=== PATIENT | male | born 1940 | race Caucasian/White ===

== ENCOUNTER 2017-09-03 11:09 | Inpatient (IN) ==
[2017-09-03] MEDS ORDERED: Levofloxacin 750 MG/150 ML 750 MG/150 ML BAG IVPB ONE (11:51)
[2017-09-03] MEDS ORDERED: Piperacillin/Tazobactam 3.375 GM in D5% in Water (Mini-Bag+) 100 ML IVPB ONE (11:51)
--- NOTE | 2017-09-03 11:51 | Emergency Department Note ---
Disposition Clinical Impression: Diabetic foot ulcer Qualifiers: Diabetic foot ulcer location: heel Diabetes mellitus type: type 2 Laterality: right Non-pressure ulcer stage: unspecified non-pressure ulcer stage Qualified Code(s): E11.621 - Type 2 diabetes mellitus with foot ulcer Disposition: Admitted As Inpatient Condition: Undetermined Time of Disposition: 12:46 Wound/Laceration HPI - General Chief Complaint: ED Wound/Laceration Stated Complaint: Wound on R foot Time Seen by Provider: 09/03/17 11:31 Source: patient Mode of arrival: wheelchair Limitations: no limitations Nursing Notes Reviewed: Yes Vital Signs Reviewed: Yes - History of Present Illness HPI Narrative: 77-year-old male with history of diabetic foot ulcer on the right heel [facility] complaining of worsening symptoms Kleen pain, erythema, discharge. The patient states this all started roughly 2 months ago. The patient has seen Dr. Becerril in podiatry. He recently had an x-ray as well as culture of the wound which revealed pseudomonas. The patient has been outpatient prescribed levofloxacin as well as Augmentin. Pain has continued to worsen as well as worsening erythema. Patient denies any desire for pain medication at this time. Extremity Location: Right: foot Mechanism: accidental Associated symptoms: Reports: pain, loss of feeling/numbness Pain Severity: moderate Pain Scale: 4 Treatments prior to arrival: other (antibiotics) - Related Data Home Medications Medication Instructions Recorded Confirmed Aspirin [Adult Low Dose Aspirin EC] 81 mg PO QAM 12/17/15 09/03/17 Atorvastatin Calcium [Lipitor] 80 mg PO HS 12/17/15 09/03/17 Calcium Carbonate [Calcium] 1 tab PO QAM 12/17/15 09/03/17 Clopidogrel [Plavix] 75 mg PO HS 12/17/15 09/03/17 Cyanocobalamin (Vitamin B-12) 1,000 mcg PO QAM 12/17/15 09/03/17 [Vitamin B12] Isosorbide MONOnitrate (24 HR) 30 mg PO HS 12/17/15 09/03/17 [Imdur] Lisinopril [Zestril] 10 mg PO HS 12/17/15 09/03/17 Metformin HCl [Glucophage] 850 mg PO BID 12/17/15 09/03/17 Nitroglycerin [Nitrostat] 0.4 mg SL Q5M PRN 12/17/15 09/03/17 Omeprazole [PriLOSEC] 40 mg PO QAM 12/17/15 09/03/17 Cholecalciferol (Vitamin D3) 1,000 unit PO QAM 01/01/16 09/03/17 [Vitamin D3] traMADol [Ultram] 50 mg PO Q6HR PRN 01/01/16 09/03/17 Metoprolol XL (24 HR) Succ [Toprol 50 mg PO DAILY 09/03/17 09/03/17 XL] levoFLOXacin [Levaquin] 500 mg PO DAILY 09/03/17 09/03/17 Allergies Allergy/AdvReac Type Severity Reaction Status Date / Time hydrocodone [From [place]] AdvReac Vomiting Verified 09/03/17 12:26 Oxycodone AdvReac Vomiting Verified 09/03/17 12:26 Constitutional: Denies: fever, chills, weakness, weight change Cardiovascular: Denies: chest pain, palpitations, dyspnea on exertion, edema, syncope Respiratory: Denies: cough, dyspnea, wheezes, hemoptysis, stridor Gastrointestinal: Denies: abdominal pain, nausea, vomiting Musculoskeletal: Denies: back pain, neck pain, arthralgia, myalgia Integumentary: Reports: lesions (Diabetic foot ulcer). Denies: rash, abrasion Past Medical History - Past Medical History Attestation: Yes The following information was validated with the patient. Source: patient Medical history: Reports: atrial fibrillation, diabetes, GERD, hyperlipidemia, hypertension, other Surgical history: Reports: cataract, coronary bypass (CABG), herniorrhaphy Psychiatric history: Reports: no psych history - Social History Smoking Status: Former smoker Smokeless Tobacco Status: Yes Alcohol use: Reports: occasionally Drug use: Reports: none Physical Exam - General Limitations: no limitations General appearance: alert, in no apparent distress - Head Head exam: atraumatic, normocephalic, normal inspection - Eye Eye exam: Present: normal appearance, PERRL, EOMI - ENT ENT exam: normal exam, normal oropharynx, mucous membranes moist - Neck Neck exam: Present: normal inspection, full ROM, trachea midline - Chest Chest inspection: Present: normal inspection, symmetric chest wall rise - Cardiovascular Cardiovascular exam: Present: regular rate - Extremities Exam Extremities exam: Present: full ROM, tenderness, other (A barraza has an area of erythematous and fluctuance on the right heel with purulent discharge. Tenderness to palpation as well as heat felt on palpation.) Course - Consultations Consultation #1: We spoke with Dr. Becerril who agreed that the patient should receive IV antibiotic and admit the patient. He will see the patient on an inpatient setting. Time: 11:55 Vital Signs Temperature 98 F 09/03/17 11:26 Pulse Rate 82 09/03/17 11:26 Respiratory Rate 20 09/03/17 11:26 Blood Pressure 190/100 09/03/17 11:26 O2 Sat by Pulse Oximetry 96 09/03/17 11:26 Temperature 98 F 09/03/17 11:26 Pulse Rate 82 09/03/17 11:26 Respiratory Rate 20 09/03/17 11:26 Blood Pressure 190/100 09/03/17 11:26 O2 Sat by Pulse Oximetry 96 09/03/17 11:26 Oxygen Delivery Oxygen Delivery Room Air Wound/Laceration - MDM Narrative Medical decision making narrative: Given the patient's pseudomonas on the culture, and failed outpatient therapy with worsening symptoms, we will admit the patient to the hospitalist as well as begin IV antibiotics at this time. Per recommendation from Dr. Becerril in podiatry, we began the patient on IV Levaquin as well as IV Zosyn. The patient denies any desire for pain medication at this time. We will obtain basic labs and admit the patient to the hospitalist, accepted by Dr. Strong. - Medical Records Medical records reviewed: Yes I reviewed the patient's medical records. - Lab Data Lab results reviewed: Yes I reviewed the patient's lab results. Result diagrams: 09/03/17 12:11 09/03/17 12:11 Lab Results 09/03/17 09/03/17 09/03/17 Range/Units 12:11 12:11 12:11 WBC 12.1 H (4.3-11.1) K/mcL RBC 5.36 (4.19-5.50) M/mcL Hgb 14.9 (12.9-16.9) g/dL Hct 46.2 (37.5-50.1) % MCV 86.2 (83.0-100.0) fL MCH 27.8 L (28.0-33.3) pg MCHC 32.3 (31.6-35.5) g/dL RDW 13.8 (11.5-14.5) % Plt Count 232 (140-400) K/mcL MPV 11.0 (9.4-12.4) fL Immature Gran % 0.4 (0-4) % Seg Neutrophils % 66.0 % Lymphocytes % 21.6 % Monocytes % 8.0 % Eosinophils % 3.6 % Basophils % 0.4 % Neutrophils # 8.0 (1.6-8.9) K/mcL Lymphocytes # 2.6 (0.6-4.6) K/mcL Monocytes # 1.0 (0.0-1.3) K/mcL Eosinophils # 0.4 (0.0-0.6) K/mcL Basophils # 0.1 (0.0-0.2) K/mcL ESR 68 H (0-10) mm/hr Sodium 138 (136-145) mEq/L Potassium 5.1 H (3.5-4.5) mEq/L Chloride 99 (98-109) mEq/L Carbon Dioxide 28 (19-29) mEq/L BUN 19 (8-26) mg/dL Creatinine 1.17 (0.72-1.25) mg/dL Est GFR ( Amer) > 60 (> 60) Est GFR (Non-Af Amer) > 60 (> 60) BUN/Creatinine Ratio 16 (6-26) Glucose 84 (70-99) mg/dL Calculated Osmolality 287 (280-300) Calcium 10.8 (8.6-10.8) mg/dL C-Reactive Protein 6 H (Less than 5) mg/L - EKG Data EKG attestation: Yes I reviewed and interpreted this EKG. EKG results narrative: Heart rate 76 bpm. [place] interval 184 ms. QTc 45 ms. Left axis deviation. Normal sinus rhythm. No ST elevation or ST depression noted. Inverted T waves noted in numerous leads that are identical to EKG from 03/14/2016. No acute changes noted. Attestation Statement - Attestation Attestation: I, Chiki Berger DO, examined this patient [id number] and my medical decision-making was reviewed with Dr. Ajit Morales, Resident Physician. I agree with the documented findings, disposition and treatment plan as described except to the extent set forth below. Please see my progress notes for details. Patient seen and examined on arrival. Patient has known diabetic foot ulcer of the right vertebral. Is seen by podiatry. Failing outpatient treatment and antibiotics at this time. No imaging requested this time our labs. Will be admitted for IV antibiotics and treatment course. Foot otherwise appears to be normal. Pulses are intact skin is warm to the touch. Diabetic area over the heel appears to have some blurriness to this time concerning for necrotic abscesses or tissue breakdown. IV antibiotics started CBC chemistry as well as imaging to be result of her admission process. Consultation placed. See detailed documentation of the physical exam, medical intervention, medical decision making, disposition and consultation in the resident physician's note
[2017-09-03 12:19] LABS: Basophils # 0.1 K/mcL (0.0-0.2); Basophils % 0.4 %; Eosinophils # 0.4 K/mcL (0.0-0.6); Eosinophils % 3.6 %; Hematocrit 46.2 % (37.5-50.1); Hemoglobin 14.9 g/dL (12.9-16.9); Immature Granulocytes % 0.4 % (0-4); Lymphocytes # 2.6 K/mcL (0.6-4.6); Lymphocytes % 21.6 %; Mean Corpuscular HGB Conc 32.3 g/dL (31.6-35.5); Mean Corpuscular Hemoglobin 27.8 pg (28.0-33.3); Mean Corpuscular Volume 86.2 fL (83.0-100.0); Platelet Count 232 K/mcL (140-400); Red Blood Count 5.36 M/mcL (4.19-5.50); Red Cell Distribution Width 13.8 % (11.5-14.5)
[2017-09-03 12:33] LABS: BUN/Creatinine Ratio 16 (6-26); Blood Urea Nitrogen 19 mg/dL (8-26); C-Reactive Protein 6 mg/L (Less than 5); Calcium 10.8 mg/dL (8.6-10.8); Carbon Dioxide 28 mEq/L (19-29); Chloride 99 mEq/L (98-109); Glucose 84 mg/dL (70-99); Osmolality,Calculated 287 (280-300); Sodium 138 mEq/L (136-145); eGFR For African Americans > 60 (> 60); eGFR For Non-African Americans > 60 (> 60)
[2017-09-03 12:34] LABS: Potassium 5.1 mEq/L (3.5-4.5)
--- NOTE | 2017-09-03 13:11 | Event Note ---
Date of Encounter: 09/03/17 Time of Encounter: 13:09 I independently obtained history and examined this patient and my medical decision-making was reviewed with the nurse practitioner. I agree with the documented findings, disposition and treatment plan as described. My findings are summarized below: Patient presents with worsening right heel swelling, pain and purulent discharge in spite of several rounds of oral antibiotics, last one was with Levaquin and Augmentin started 4 days ago and wound care. On exam he is awake alert oriented. No distress. Heart is regular with no murmurs. Lungs are clear. Right heel soft tissue swelling and open wound surrounded by erythematous skin draining a very small amount of white purulent material. Assessment: Nonhealing right heel diabetic foot ulcer with infection caused by Pseudomonas, failed outpatient treatment. Plan: We will admit the patient to the hospital. Start IV Zosyn. Start IV Levaquin. We will send a wound culture. Consult podiatry. Kit Strong MD
[2017-09-03] MEDS ORDERED: Naloxone 0.4 MG/ML INJ IVP PRN (13:16)
[2017-09-03] MEDS ORDERED: Ipratropium/Albuterol Neb 3 ML IH PRN (13:23)
[2017-09-03] MEDS ORDERED: Nitroglycerin 0.4 MG TAB.SUBL SL PRN (13:28)
[2017-09-03] MEDS ORDERED: Dextrose Gel 15 GM PO PRN ×2 (13:30)
[2017-09-03] MEDS ORDERED: D5% in Water 1,000 ML IVC PRN (13:30)
[2017-09-03] MEDS ORDERED: *HR* Dextrose 50 % in Water (Syg) 50 ML SYRINGE IVP PRN (13:30)
--- NOTE | 2017-09-03 13:36 | Internal Med History&Physical ---
<DewayneAjit Ann - Last Filed: 09/03/17 15:18> Date of Encounter: 09/03/17 Time of Encounter: 12:30 Assessment and Plan (1) Diabetic foot ulcer Current visit: Yes Status: Acute Foot ulcer present for 2 months. Failed OP therapy w/PO levaquin and Augmentin four days ago. Pt. followed by Dr. Becerril. Previous wound culture positive for Pseudomonas with sensitivities to Levaquin and Zosyn. Podiatry consult ordered with daily wound care. IVP the Levaquin 750 mg daily and Zosyn 3.375 gm every 8 ordered for infection coverage. Patient does not currently meet sepsis criteria. Monitor patient for signs of increasing infection, cardiac, and/or respiratory distress. Pt. high risk for further morbidity/sepsis d/t current uncontrolled infection. Inpatient. Qualifiers: Diabetic foot ulcer location: heel Diabetes mellitus type: type 2 Laterality: right Non-pressure ulcer stage: unspecified non-pressure ulcer stage Qualified Code(s): E11.621 - Type 2 diabetes mellitus with foot ulcer; L97.419 - Non-pressure chronic ulcer of right heel and midfoot with unspecified severity; L97.419 - Non-pressure chronic ulcer of right heel and midfoot with unspecified severity; L97.419 - Non-pressure chronic ulcer of right heel and midfoot with unspecified severity; L97.419 - Non-pressure chronic ulcer of right heel and midfoot with unspecified severity (2) Leukocytosis Current visit: Yes Status: Acute Acute leukocytosis of 12.1 most likely due to current infected foot ulcer of rt. heel. F/u labs ordered to monitor WBC. IVPB levaquin and Zosyn for infection coverage. Qualifiers: Leukocytosis type: unspecified Qualified Code(s): D72.829 - Elevated white blood cell count, unspecified (3) Hyperkalemia Current visit: Yes Status: Acute Acute hyperkalemia with potassium of 5.1. Pt. receiving IV NS which should resolve. Monitor f/u labs for potassium levels. (4) Atrial fibrillation Current visit: Yes Status: Chronic Hx of atrial fibrillation. Stable. Patient's HR currently in rhythm. EKG shows sinus rhythm with possible atrial enlargement. Qualifiers: Atrial fibrillation type: paroxysmal Qualified Code(s): I48.0 - Paroxysmal atrial fibrillation (5) GERD (gastroesophageal reflux disease) Current visit: Yes Status: Chronic Hx of chronic GERD. IVP Zofran Q6 PRN. IVP Protonix 40 mg BID. Qualifiers: Esophagitis presence: esophagitis presence not specified Qualified Code(s) : K21.9 - Gastro-esophageal reflux disease without esophagitis (6) CHF (congestive heart failure) Current visit: Yes Status: Chronic Hx of chronic CHF. Stable. Patient currently has no pedal edema or SOB on exam. Qualifiers: Congestive heart failure type: unspecified congestive heart failure type Congestive heart failure chronicity: unspecified congestive heart failure chronicity Qualified Code(s): I50.9 - Heart failure, unspecified (7) CAD (coronary artery disease) Current visit: Yes Status: Chronic Hx of chronic CAD. Patient placed on continuous cardiac telemetry due to history of atrial fibrillation. Will continue patient's Imdur, lisinopril, Plavix, Lipitor, and aspirin therapy. Qualifiers: Coronary Disease-Associated Artery/Lesion type: unspecified vessel or lesion type [place] vs. transplanted heart: rin[place] heart Associated angina: angina presence unspecified Qualified Code(s): I25.10 - Atherosclerotic heart disease of [place] coronary artery without angina pectoris (8) DM II (diabetes mellitus, type II), controlled Current visit: Yes Status: Chronic Hx of chronic diabetes controlled with oral anti-hyperglycemics. Patient currently has unresolved foot ulcer to right foot. Will hold patient's oral medication and administer low-dose correction insulin sliding scale with hypoglycemic protocol. A1c ordered in a.m. labs. Diabetic education consult placed. Qualifiers: Diabetes mellitus complication status: with skin complications Diabetes mellitus complication detail: with foot ulcer Diabetes mellitus group home insulin use: without laborer marine terminal use Qualified Code(s): E11.621 - Type 2 diabetes mellitus with foot ulcer; L97.509 - Non-pressure chronic ulcer of other part of unspecified foot with unspecified severity; L97.509 - Non- pressure chronic ulcer of other part of unspecified foot with unspecified severity; L97.509 - Non-pressure chronic ulcer of other part of unspecified foot with unspecified severity; L97.509 - Non-pressure chronic ulcer of other part of unspecified foot with unspecified severity (9) HTN (hypertension) Current visit: Yes Status: Chronic Hx of chronic HTN. Monitor VS and continue Imdur and lisinopril. Qualifiers: Hypertension type: essential hypertension Qualified Code(s): I10 - Essential (primary) hypertension (10) HLD (hyperlipidemia) Current visit: Yes Status: Chronic Hx of chronic HLD. Lipid panel ordered in a.m. labs. Continue Lipitor. Qualifiers: Hyperlipidemia type: pure hypercholesterolemia Qualified Code(s): E78.00 - Pure hypercholesterolemia, unspecified; E78.0 - Pure hypercholesterolemia (11) DVT prophylaxis Current visit: Yes Status: Acute Heparin 5,000 units SQ Q8 for DVT prophylaxis. Internal Medicine - H&P: HPI Chief complaint: Painful wound on right heel Admitted From: Emergency Dept Plans for Post Hospital Care: Home History of present illness: Mr. Connolly is a 77 year old male with medical history of atrial fibrillation, diabetes controlled with oral anti-hyperglycemics, GERD, HLD, and HTN presents from the ED with chief complaint of a painful right wound to his right heel. Patient states wound has been present for the past 2 months and he is currently followed by Dr. Becerril. Mr. connolly states the wound has been draining purulent discharge for the past several days with a stabbing pain. Patient was placed on by mouth Levaquin and Augmentin 4 days ago but states the wound is becoming worse and more painful. Wound culture positive for Pseudomonas sensitivity to Levaquin and Zosyn. Patient reports being on antibiotics on and off for the past 2 months and states he has had 2 days of watery diarrhea. Patient reports cough but denies SOB, recent illness, fever, chills, abdominal pain, chest pain , limitations, headache, changes in vision, unusual bleeding, lightheadedness, dizziness, presyncope, or syncope. Past Med Surg Social Fam HX - Past Medical History Source: patient, old records reviewed, obtained from family Medical history: atrial fibrillation, diabetes, GERD, hyperlipidemia, hypertension, other Psychiatric history: no psych history - Past Surgical History Surgical History: cataract, coronary bypass (CABG), herniorrhaphy - Social History Smoking Status: Former smoker Packs per day: 3/4 PPD - Reports quitting in 2001 Smokeless Tobacco Status: Yes Alcohol use: occasionally Drug use: none Current living situation: Home, With Family Activity Level: Independent ambulation Recent Out of Country Travel Within the Last 8 Weeks: No Exposure or Possible Exposure to Illness During Travel: No - Family History Father Race: Family Member Ethnicity: Non- Living Status: Age at : 41 Cause of : Metastatic cancer Hx Family Cancer: Yes Mother Race: Family Member Ethnicity: Non- Living Status: Age at : 74 Cause of : Breast cancer Hx Family Respiratory Disorders: Yes (Emphysema) Hx Family Cancer: Yes (Breast) Brother Race: Family Member Ethnicity: Non- Living Status: Age at : 63 Cause of : Heart failure Hx Family Cardiac Disorders: Yes (CAD) Sister Race: Family Member Ethnicity: Non- Living Status: Age at : 60 Cause of : ID Hx Family Cardiac Disorders: Yes (CAD) Hx Family Endocrine Disorder: Yes (DM) Internal Medicine - H&P: Meds Aspirin [Adult Low Dose Aspirin EC] 81 mg PO QAM 12/17/15 [History] Atorvastatin Calcium [Lipitor] 80 mg PO HS 12/17/15 [History] Calcium Carbonate [Calcium] 1 tab PO QAM 12/17/15 [History] Clopidogrel [Plavix] 75 mg PO HS 12/17/15 [History] Cyanocobalamin (Vitamin B-12) [Vitamin B12] 1,000 mcg PO QAM 12/17/15 [History] Isosorbide MONOnitrate (24 HR) [Imdur] 30 mg PO HS 12/17/15 [History] Lisinopril [Zestril] 10 mg PO HS 12/17/15 [History] Metformin HCl [Glucophage] 850 mg PO BID 12/17/15 [History] Nitroglycerin [Nitrostat] 0.4 mg SL Q5M PRN 12/17/15 [History] Omeprazole [PriLOSEC] 40 mg PO QAM 12/17/15 [History] Cholecalciferol (Vitamin D3) [Vitamin D3] 1,000 unit PO QAM 01/01/16 [History] traMADol [Ultram] 50 mg PO Q6HR PRN 01/01/16 [History] Metoprolol XL (24 HR) Succ [Toprol XL] 50 mg PO DAILY 09/03/17 [History] levoFLOXacin [Levaquin] 500 mg PO DAILY 09/03/17 [History] 3 Allergy/AdvReac Type Severity Reaction Status Date / Time hydrocodone [From [place]] AdvReac Vomiting Verified 09/03/17 12:26 Oxycodone AdvReac Vomiting Verified 09/03/17 12:26 All Systems PM: A 10-system review of systems was performed and is negative for pertinent findings except as documented above in the HPI. - Constitutional Constitutional: no chills, no fever(s), no night sweats - EENT Eyes: no change in vision, no discharge, no pain, no photophobia Ears: no ear discharge, no ear pain, no tinnitus Nose, mouth and throat: no dysphagia, no nasal discharge, no neck pain, no sore throat - Breasts Breasts: as per HPI - Cardiovascular Cardiovascular ROS IM: no chest pain, no diaphoresis, no dyspnea, no lightheadedness, no palpitations, no syncope - Respiratory Respiratory: as per HPI, cough - Gastrointestinal Gastrointestinal: no abdominal pain, no diarrhea, no hematemesis, no hematochezia, no melena, no nausea, no vomiting - Genitourinary Genitourinary ROS male: as per HPI - Musculoskeletal Musculoskeletal ROS IM: no numbness, no tingling - Integumentary Integumentary IM: skin ulcer (Right heel with erythema and edema), no rash, no unusual bruising - Neurological Neurological ROS: no confusion, no convulsions, no focal weakness, no numbness, no tingling, no tremor(s) - Psychiatric Psychiatric: as per HPI - Endocrine Endocrine IM: as per HPI - Hematologic/Lymphatic Hematologic/Lymphatic: no easy bruising - Allergic/Immunologic Allergic/Immunologic: as per HPI - Constitutional Vitals: Temp Pulse Resp BP Pulse Ox 98 F 82 16 190/100 96 09/03/17 11:26 09/03/17 11:26 09/03/17 13:17 09/03/17 13:17 09/03/17 11:26 General appearance: Present: cooperative, A&O X 3, pleasant, no acute distress, answers questions appropriately - Head Head exam: Present: atraumatic, normocephalic - Eye Eye exam: Present: PERRL, conjuntiva pink, sclera anicteric Pupils: Present: PERRL - ENT ENT exam: Present: normal exam, normal external ear exam - Neck Neck exam general surgery: Present: normal inspection, supple, trachea midline. Absent: lymphadenopathy - Respiratory Respiratory exam: Present: CTAB. Absent: accessory muscle use, rales, rhonchi, wheezes - Cardiovascular Cardiovascular exam: Present: RRR, +S1, +S2. Absent: diastolic murmur, gallop, rubs, systolic murmur - GI/Abdominal GI/Abdominal exam: Present: normal bowel sounds, soft, no peritoneal signs. Absent: distended, tenderness - Rectal Rectal exam: Present: deferred - Additional comments: exam deferred. - Extremities Exam Extremities exam: Present: warm, radial pulses palpable and symmetrical. Absent : calf tenderness, cyanotic, pedal edema - Back Exam Back exam: Present: normal inspection - Neurological Exam Neurological exam: Present: CN II-XII intact, oriented X3, no focal deficits. Absent: pronater drift, facial droop, speech deficit - Psychiatric Psychiatric exam: Present: normal affect, normal mood - Skin Skin exam: Present: dry, intact Internal Med - H&P Results - Labs CBC & Chem 7: 09/03/17 12:11 09/03/17 12:11 <Kit Strong - Last Filed: 09/03/17 17:50> Date of Encounter: 09/03/17 Internal Medicine - H&P: HPI History of present illness: Mr. Connolly is a 77 year old male All Systems PM: A 10-system review of systems was performed and is negative for pertinent findings except as documented above in the HPI. - Constitutional Vitals: Temp Pulse Resp BP Pulse Ox 98.2 F 75 18 168/91 96 09/03/17 16:22 09/03/17 16:22 09/03/17 16:22 09/03/17 16:22 09/03/17 16:22 Internal Med - H&P Results - Labs CBC & Chem 7: 09/03/17 12:11 09/03/17 12:11 - Attending Attestation I independently obtained history and examined this patient and my medical decision-making was reviewed with the nurse practitioner. I agree with the documented findings, disposition and treatment plan as described. Please see my event note. Kit Strong MD
[2017-09-03] MEDS: 0.9 % Sodium Chloride 1,000 ML IVC SCH (15:05)
[2017-09-03] MEDS: *HR* Heparin 5,000 UNIT/ML VIAL SQ SCH ×2 (15:06→21:01)
[2017-09-03] MEDS: traMADol 50 MG TABLET PO PRN (16:52)
[2017-09-03] MEDS: Insulin LISPRO 300 UNITS/3 ML VIAL SQ SCH ×2 (17:24→21:02)
--- NOTE | 2017-09-03 17:29 | Podiatry Consult Note ---
Date of Encounter: 09/03/17 Time of Encounter: 17:00 Assessment and Plan (1) Skin infection Current visit: Yes Status: Acute Admitting wbc 12.1 ESR 68 and CRP 6 continue current antibiotic therapy per internal med Patient was started on levaquin and Zosyn Will obtain new cultures in surgery (2) Abscess Current visit: Yes Status: Acute Assessment: Assessment findings consistent with probable abscess of right posterior calcaneus There is fluctuance noted surrounding wound Will plan for formal I&D in or tomorrow with Consent obtained NPO after midnight Will obtain new cultures in OR. (3) DM II (diabetes mellitus, type II), controlled Current visit: Yes Status: Chronic strict glucose control to assist in healing and prevent further complications Qualifiers: Diabetes mellitus complication status: with skin complications Diabetes mellitus complication detail: with foot ulcer Diabetes mellitus termite technician insulin use: without longterm use Qualified Code(s): E11.621 - Type 2 diabetes mellitus with foot ulcer; L97.509 - Non-pressure chronic ulcer of other part of unspecified foot with unspecified severity; L97.509 - Non- pressure chronic ulcer of other part of unspecified foot with unspecified severity; L97.509 - Non-pressure chronic ulcer of other part of unspecified foot with unspecified severity; L97.509 - Non-pressure chronic ulcer of other part of unspecified foot with unspecified severity History of Present Illness HPI: Mr. Connolly is a 77 year old male who arrived to [facility] with complaints of worsening edema and ulcer to right heel. Patient was last seen by in podiatry clinic. Patient had a small wound to posterior right calcaneus which was slightly opened and cultured. Patient was started on augmentin- wound grew pseudomonas. Patient stated that after wound was worsening he contacted and levaquin was added. Patient stated he took levaquin for 2 days and the wound continued to worsen so he came to the Ed. Patient states the wound has been ongoing for 3 months. Patient denies knowing what started the wound. Patient states he knows he has a hx of bone spurs and that he did bump his heel once on the bed before this all started. Patient denies any fevers, chills, n/v or flu like symptoms. Patient has past medical hx of Etoh abuse, CAD, CHF, HTN and DM Past Med Surg Social Fam HX - Past Medical History Medical history: atrial fibrillation, diabetes, GERD, hyperlipidemia, hypertension, other Psychiatric history: no psych history - Past Surgical History Surgical History: cataract, coronary bypass (CABG), herniorrhaphy - Social History Smoking Status: Former smoker Packs per day: 3/4 PPD - Reports quitting in 2001 Smokeless Tobacco Status: Yes Alcohol use: occasionally Drug use: none - Family History Father Race: Family Member Ethnicity: Non- Living Status: Age at : 41 Cause of : Metastatic cancer Hx Family Cancer: Yes Mother Race: Family Member Ethnicity: Non- Living Status: Age at : 74 Cause of : Breast cancer Hx Family Respiratory Disorders: Yes (Emphysema) Hx Family Cancer: Yes (Breast) Brother Race: Family Member Ethnicity: Non- Living Status: Age at : 63 Cause of : Heart failure Hx Family Cardiac Disorders: Yes (CAD) Sister Race: Family Member Ethnicity: Non- Living Status: Age at : 60 Cause of : LA Hx Family Cardiac Disorders: Yes (CAD) Hx Family Endocrine Disorder: Yes (DM) Medications and Allergies Aspirin [Adult Low Dose Aspirin EC] 81 mg PO QAM 12/17/15 [History] Atorvastatin Calcium [Lipitor] 80 mg PO HS 12/17/15 [History] Calcium Carbonate [Calcium] 1 tab PO QAM 12/17/15 [History] Clopidogrel [Plavix] 75 mg PO HS 12/17/15 [History] Cyanocobalamin (Vitamin B-12) [Vitamin B12] 1,000 mcg PO QAM 12/17/15 [History] Isosorbide MONOnitrate (24 HR) [Imdur] 30 mg PO HS 12/17/15 [History] Lisinopril [Zestril] 10 mg PO HS 12/17/15 [History] Metformin HCl [Glucophage] 850 mg PO BID 12/17/15 [History] Nitroglycerin [Nitrostat] 0.4 mg SL Q5M PRN 12/17/15 [History] Omeprazole [PriLOSEC] 40 mg PO QAM 12/17/15 [History] Cholecalciferol (Vitamin D3) [Vitamin D3] 1,000 unit PO QAM 01/01/16 [History] traMADol [Ultram] 50 mg PO Q6HR PRN 01/01/16 [History] Metoprolol XL (24 HR) Succ [Toprol XL] 50 mg PO DAILY 09/03/17 [History] levoFLOXacin [Levaquin] 500 mg PO DAILY 09/03/17 [History] 3 Allergy/AdvReac Type Severity Reaction Status Date / Time hydrocodone [From [place]] AdvReac Vomiting Verified 09/03/17 12:26 Oxycodone AdvReac Vomiting Verified 09/03/17 12:26 All Systems Reviewed: A 10-system review of systems was performed and is negative for pertinent findings except as documented above in the HPI. Physical Exam - Constitutional Vitals: Temp Pulse Resp BP Pulse Ox 98.2 F 75 18 168/91 96 09/03/17 16:22 09/03/17 16:22 09/03/17 16:22 09/03/17 16:22 09/03/17 16:22 Exam: Awake, alert and oriented Pedal pulses palpable DP/PT Cap refill < 3 seconds Sensation intact with light-moderate touch No calf pain with manual compression Posterior right calcaneus- there are 2 small ulcerations noted one 0.2cmx0.2cmx0.1cm and another 0.1cmx0.1cmx0.1cm which has a small expression of yellow drainage. Ulcerations are very small however there is a large amount of erythema and edema surrounding wound. There is fluctuance consistent with possible abscess to wound surrounding ulcerations. There is warmth, tenderness and scant drainage. Results - Labs Result Diagrams: 09/03/17 12:11 09/03/17 12:11 Labs: Abnormal lab results WBC 12.1 K/mcL (4.3-11.1) H 09/03/17 12:11 MCH 27.8 pg (28.0-33.3) L 09/03/17 12:11 ESR 68 mm/hr (0-10) H 09/03/17 12:11 Potassium 5.1 mEq/L (3.5-4.5) H 09/03/17 12:11 C-Reactive Protein 6 mg/L (Less than 5) H 09/03/17 12:11 All other labs normal. Consult Discharge Plan - Plan Referrals: William Donohue DO [Primary Care Provider] -
[2017-09-03] MEDS: Acetaminophen 325 MG TABLET PO PRN (18:31)
[2017-09-03] MEDS: Piperacillin/Tazobactam 3.375 GM in D5% in Water (Mini-Bag+) 100 ML IVPB SCH (20:52)
[2017-09-03] MEDS: Ondansetron 4 MG/2 ML VIAL IVP PRN (20:55)
[2017-09-03] MEDS: Pantoprazole 40 MG VIAL IVP SCH (20:56)
[2017-09-03] MEDS: Isosorbide MONOnitrate (24 HR) 30 MG TAB.ER.24H PO SCH (20:57)
[2017-09-04] MEDS: Acetaminophen 325 MG TABLET PO PRN ×2 (01:55→16:09)
[2017-09-04] MEDS: Piperacillin/Tazobactam 3.375 GM in D5% in Water (Mini-Bag+) 100 ML IVPB SCH ×3 (04:02→19:45)
[2017-09-04 05:11] LABS: Basophils # 0.1 K/mcL (0.0-0.2); Basophils % 0.4 %; Eosinophils # 0.4 K/mcL (0.0-0.6); Eosinophils % 3.6 %; Hematocrit 40.3 % (37.5-50.1); Hemoglobin 13.1 g/dL (12.9-16.9); Immature Granulocytes % 0.5 % (0-4); Lymphocytes # 2.5 K/mcL (0.6-4.6); Lymphocytes % 21.3 %; Mean Corpuscular HGB Conc 32.5 g/dL (31.6-35.5); Mean Corpuscular Volume 86.1 fL (83.0-100.0); Monocytes % 8.5 %; Neutrophils # 7.8 K/mcL (1.6-8.9); Platelet Count 190 K/mcL (140-400); Red Blood Count 4.68 M/mcL (4.19-5.50); Red Cell Distribution Width 13.8 % (11.5-14.5); Segmented Neutrophils % 65.7 %
[2017-09-04 05:16] LABS: INR 1.2; Prothrombin Time 12.7 Seconds (9.4-12.1)
[2017-09-04 05:18] LABS: Activated Partial Thrombo Time 28.5 Seconds (26.0-36.0)
[2017-09-04 05:20] LABS: Alanine Aminotransferase 10 Units/L (0-55); Albumin 3.2 g/dL (3.5-5.0); Albumin/Globulin Ratio 0.8 (1.1-2.2); Alkaline Phosphatase 100 Units/L (38-126); Aspartate Amino Transferase 12 Units/L (5-34); BUN/Creatinine Ratio 14 (6-26); Bilirubin,Total 0.5 mg/dL (0.2-1.2); Blood Urea Nitrogen 16 mg/dL (8-26); Calcium 9.5 mg/dL (8.6-10.8); Carbon Dioxide 31 mEq/L (19-29); Chloride 101 mEq/L (98-109); Chol/HDL Ratio 4.5 (0-4.9); Cholesterol 121 mg/dL (< 200); Globulin 3.9 g/dL (2.4-3.5); Glucose 102 mg/dL (70-99); HDL Cholesterol 27 mg/dL (40-59); LDL Cholesterol,Calculated 71 mg/dL (0-99); Magnesium 1.2 mg/dL (1.6-2.6); Osmolality,Calculated 287 (280-300); Potassium 4.9 mEq/L (3.5-4.5); Sodium 138 mEq/L (136-145); Total Protein 7.1 g/dL (6.0-8.3); Triglycerides 113 mg/dL (< 150); eGFR For African Americans > 60 (> 60); eGFR For Non-African Americans > 60 (> 60)
[2017-09-04 05:23] LABS: Hemoglobin A1C 6.2 %
[2017-09-04] MEDS: *HR* Heparin 5,000 UNIT/ML VIAL SQ SCH ×3 (05:43→20:27)
[2017-09-04] MEDS: Metoprolol XL (24 HR) Succ 50 MG TAB.ER.24H PO SCH (07:13)
[2017-09-04] MEDS: Insulin LISPRO 300 UNITS/3 ML VIAL SQ SCH ×4 (07:40→20:27)
[2017-09-04] MEDS: Cyanocobalamin (B-12) 1,000 MCG TABLET PO SCH (07:41)
[2017-09-04] MEDS: Aspirin Enteric Coated 81 MG Tablet PO SCH (07:41)
[2017-09-04] MEDS: Cholecalciferol (D-3) 1,000 UNIT TABLET PO SCH (07:41)
[2017-09-04] MEDS: Pantoprazole 40 MG VIAL IVP SCH (07:41)
--- NOTE | 2017-09-04 08:09 | Podiatry Progress Note ---
Date of Encounter: 09/04/17 Time of Encounter: 07:08 - Assessment and Plan (1) Diabetic foot ulcer Current Visit: Yes Status: Acute At this time the patient was instructed that he may have a deep abscess. The patient was instructed that we could try to drain the abscess at bedside. Patient relates that it is exquisitely painful and states that he does not think that he can handle the pain. The patient relates that he is concerned about significant pain. At this time I feel is appropriate to take the patient to the operative room due to the pain and the ability to more effectively explore the site and cleansed the site. The patient was agreeable with surgical intervention and the operative room. The procedure discussed was incision and drainage of the right heel.Patient was informed of the risks and complications of surgery. These may include but are not limited to the following ; nerve damage, numbness, tingling, RSD/CRPS, loss of motor function, loss of toe, loss of limb, loss of life, ischemia, wound healing issues, infection, scarring, keloid formation, continued pain, arthritis, non-union, mal-union, prominent hardware, displaced hardware, reaction to hardware, the need to remove hardware, bruising, continued limp, the need for future surgery, over correction, under correction, chronic swelling, the need for physical therapy, stiffness of joints, ulceration, slow healing, wound dehiscence, reaction to implant, reaction to sutures. The patient was informed of the possible conservative treatments available which may include but are not limited to the following: Orthotics, bracing, non -weight bearing, physical therapy, padding, taping, steroid injections, NSAIDS, casting. The patient was given the option to seek a second opinion. It was explained that surgery is an art and not an exact science therefore results cannot be guaranteed. All the patients questions and concerns were addressed. Patient agrees to have the surgery despite the possible risks and complications. Absolutely no guarantees were given or implied. Qualifiers: Diabetic foot ulcer location: heel Diabetes mellitus type: type 2 Laterality: right Non-pressure ulcer stage: unspecified non-pressure ulcer stage Qualified Code(s): E11.621 - Type 2 diabetes mellitus with foot ulcer; L97.419 - Non-pressure chronic ulcer of right heel and midfoot with unspecified severity; L97.419 - Non-pressure chronic ulcer of right heel and midfoot with unspecified severity; L97.419 - Non-pressure chronic ulcer of right heel and midfoot with unspecified severity; L97.419 - Non-pressure chronic ulcer of right heel and midfoot with unspecified severity Subjective Principal diagnosis: Right heel abscess Interval history: Patient relates that over the last 2 weeks he has had increasing pain due to the right heel abscess. Patient relates mild drainage. Patient relates that there is an area that appears to be infected. Patient denies any other pedal complaints or recent injuries. Objective - Vital Signs Vital Signs: Vital Signs Temp Pulse Resp BP Pulse Ox 09/04/17 07:09 97.8 F 78 16 166/102 90 09/04/17 03:59 98.4 F 68 18 162/89 95 09/04/17 00:21 98.0 F 83 14 112/66 93 09/03/17 20:10 97.7 F 67 18 184/88 96 09/03/17 16:22 98.2 F 75 18 168/91 96 09/03/17 13:35 98.3 F 74 18 209/103 98 09/03/17 13:17 16 190/100 09/03/17 13:06 98 Intake and Output 09/03/17 09/04/17 09/04/17 23:59 07:59 15:59 Intake Total 100 / 100 Output Total 0 / 0 Balance 0 / 0 100 / 100 Intake: IV Fluids 100 / 100 Zosyn 3.375 GM In Dextrose 5% ( 100 / 100 Minibag+) 100 ML 100 ML @ 25 mls/hr IVPB Q8H [facility] Rx#: [id number] Output: Urine 0 / 0 Other: # Voids 1 1 Weight 74 kg Blood Glucose* 109 100 Patient Weight 09/04/17 23:59 Weight 74 kg - Exam Exam: Awake, alert and oriented Pedal pulses palpable DP/PT Cap refill < 3 seconds Sensation intact with light-moderate touch No calf pain with manual compression Posterior right calcaneus- there are 2 small ulcerations noted one 0.2cmx0.2cmx0.1cm and another 0.1cmx0.1cmx0.1cm which has a small expression of yellow purulent drainage. Ulcerations are very small however there is a large amount of erythema and edema surrounding wound. There is fluctuance consistent with possible abscess to wound surrounding ulcerations. There is warmth, tenderness and scant drainage. - Lab Result Diagrams: 09/04/17 04:38 09/04/17 04:38 Labs: Abnormal lab results WBC 11.9 K/mcL (4.3-11.1) H 09/04/17 04:38 ESR 68 mm/hr (0-10) H 09/03/17 12:11 PT 12.7 Seconds (9.4-12.1) H 09/04/17 04:38 Potassium 4.9 mEq/L (3.5-4.5) H 09/04/17 04:38 Carbon Dioxide 31 mEq/L (19-29) H 09/04/17 04:38 Glucose 102 mg/dL (70-99) H 09/04/17 04:38 POC Glucose 100 (58-89) H 09/04/17 05:08 Hemoglobin A1c 6.2 % (-5.6) H 09/04/17 04:38 Magnesium 1.2 mg/dL (1.6-2.6) L 09/04/17 04:38 C-Reactive Protein 6 mg/L (Less than 5) H 09/03/17 12:11 Albumin 3.2 g/dL (3.5-5.0) L 09/04/17 04:38 Globulin 3.9 g/dL (2.4-3.5) H 09/04/17 04:38 Albumin/Globulin Ratio 0.8 (1.1-2.2) L 09/04/17 04:38 HDL Cholesterol 27 mg/dL (40-59) L 09/04/17 04:38 Consult Discharge Plan - Plan Referrals: William Donohue DO [Primary Care Provider] -
--- NOTE | 2017-09-04 08:50 | Anesthesia Evaluation PreOp ---
Date of Encounter: 09/04/17 Time of Encounter: 09:45 - Past History Cardiac History: CHF, HTN (maintained on Imdur, Lisinopril, Metoprolol), Arrhythmia (Paroxysmal AFib), Cardiac Surgery (s/p CABG), Cardiac Stent (stents x 2 [placed >1yr ago] maintained on ASA, Plavix), Other (ECHO 09/03/2017 - Low- normal LV systolic function, LVEF 50-55%. Moderate asymmetric LV basal septal hypertrophy. No evidence of LVOT obstruction. Mild left ventricular diastolic dysfunction. Normal right ventricular size and function. Moderate-severely calcified aortic valve leaflets. Valve morphology was not well visualized. Moderate aortic stenosis. Mild aortic regurgitation. No evidence of pulmonary hypertension. Consider KAYLYNN for further evaluation of the aortic valve if clinically indicated. Left Ventricular Wall Motion: Rest Echo Findings All wall segments showed normal motion.) Pulmonary History: Former smoker (quit 2001. 50pk year Hx) COMPANY CONTROLLER History: Denies Any Significant HX Other Medical History: Diabetes Type II, GERD (Hx of Esophagitis maintained on Omeprazole) Anesthesia History: No Prior Anesthetic Complications, Past Anesthesia (CABG, Cataracts, Hernia repair) Alcohol Use: occasionally Drug use: none Medications and Allergies Aspirin [Adult Low Dose Aspirin EC] 81 mg PO QAM 12/17/15 [History] Atorvastatin Calcium [Lipitor] 80 mg PO HS 12/17/15 [History] Calcium Carbonate [Calcium] 1 tab PO QAM 12/17/15 [History] Clopidogrel [Plavix] 75 mg PO HS 12/17/15 [History] Cyanocobalamin (Vitamin B-12) [Vitamin B12] 1,000 mcg PO QAM 12/17/15 [History] Isosorbide MONOnitrate (24 HR) [Imdur] 30 mg PO HS 12/17/15 [History] Lisinopril [Zestril] 10 mg PO HS 12/17/15 [History] Metformin HCl [Glucophage] 850 mg PO BID 12/17/15 [History] Nitroglycerin [Nitrostat] 0.4 mg SL Q5M PRN 12/17/15 [History] Omeprazole [PriLOSEC] 40 mg PO QAM 12/17/15 [History] Cholecalciferol (Vitamin D3) [Vitamin D3] 1,000 unit PO QAM 01/01/16 [History] traMADol [Ultram] 50 mg PO Q6HR PRN 01/01/16 [History] Metoprolol XL (24 HR) Succ [Toprol XL] 50 mg PO DAILY 09/03/17 [History] levoFLOXacin [Levaquin] 500 mg PO DAILY 09/03/17 [History] 3 Allergy/AdvReac Type Severity Reaction Status Date / Time hydrocodone [From [place]] AdvReac Vomiting Verified 09/03/17 12:26 Oxycodone AdvReac Vomiting Verified 09/03/17 12:26 - Meds/Allergy Pre-op Review Medications Reviewed: Yes Allergies Reviewed: Yes Beta Blockers on Current Med List: Yes (MEtoprolol) If Beta Blockers taken, Date/Time (Last Dose taken): 09/04/2017 @ 0657 Anesthesia Results - Labs 09/04/17 04:38 09/04/17 04:38 Laboratory Results WBC 11.9 K/mcL (4.3-11.1) H 09/04/17 04:38 RBC 4.68 M/mcL (4.19-5.50) 09/04/17 04:38 Hgb 13.1 g/dL (12.9-16.9) D 09/04/17 04:38 Hct 40.3 % (37.5-50.1) 09/04/17 04:38 MCV 86.1 fL (83.0-100.0) 09/04/17 04:38 MCH 28.0 pg (28.0-33.3) 09/04/17 04:38 MCHC 32.5 g/dL (31.6-35.5) 09/04/17 04:38 RDW 13.8 % (11.5-14.5) 09/04/17 04:38 Plt Count 190 K/mcL (140-400) 09/04/17 04:38 MPV 11.0 fL (9.4-12.4) 09/04/17 04:38 Immature Gran % 0.5 % (0-4) 09/04/17 04:38 Seg Neutrophils % 65.7 % 09/04/17 04:38 Lymphocytes % 21.3 % 09/04/17 04:38 Monocytes % 8.5 % 09/04/17 04:38 Eosinophils % 3.6 % 09/04/17 04:38 Basophils % 0.4 % 09/04/17 04:38 Neutrophils # 7.8 K/mcL (1.6-8.9) 09/04/17 04:38 Lymphocytes # 2.5 K/mcL (0.6-4.6) 09/04/17 04:38 Monocytes # 1.0 K/mcL (0.0-1.3) 09/04/17 04:38 Eosinophils # 0.4 K/mcL (0.0-0.6) 09/04/17 04:38 Basophils # 0.1 K/mcL (0.0-0.2) 09/04/17 04:38 ESR 68 mm/hr (0-10) H 09/03/17 12:11 PT 12.7 Seconds (9.4-12.1) H 09/04/17 04:38 INR 1.2 09/04/17 04:38 APTT 28.5 Seconds (26.0-36.0) 09/04/17 04:38 Sodium 138 mEq/L (136-145) 09/04/17 04:38 Potassium 4.9 mEq/L (3.5-4.5) H 09/04/17 04:38 Chloride 101 mEq/L (98-109) 09/04/17 04:38 Carbon Dioxide 31 mEq/L (19-29) H 09/04/17 04:38 BUN 16 mg/dL (8-26) 09/04/17 04:38 Creatinine 1.15 mg/dL (0.72-1.25) 09/04/17 04:38 Est GFR ( Amer) > 60 (> 60) 09/04/17 04:38 Est GFR (Non-Af Amer) > 60 (> 60) 09/04/17 04:38 BUN/Creatinine Ratio 14 (6-26) 09/04/17 04:38 Glucose 102 mg/dL (70-99) H 09/04/17 04:38 POC Glucose 100 (58-89) H 09/04/17 05:08 Est Mean Plasma Glucose 131 mg/dl 09/04/17 04:38 Hemoglobin A1c 6.2 % (-5.6) H 09/04/17 04:38 Calculated Osmolality 287 (280-300) 09/04/17 04:38 Calcium 9.5 mg/dL (8.6-10.8) 09/04/17 04:38 Magnesium 1.2 mg/dL (1.6-2.6) L 09/04/17 04:38 Total Bilirubin 0.5 mg/dL (0.2-1.2) 09/04/17 04:38 AST 12 Units/L (5-34) 09/04/17 04:38 ALT 10 Units/L (0-55) 09/04/17 04:38 Alkaline Phosphatase 100 Units/L (38-126) 09/04/17 04:38 C-Reactive Protein 6 mg/L (Less than 5) H 09/03/17 12:11 Serum Total Protein 7.1 g/dL (6.0-8.3) 09/04/17 04:38 Albumin 3.2 g/dL (3.5-5.0) L 09/04/17 04:38 Globulin 3.9 g/dL (2.4-3.5) H 09/04/17 04:38 Albumin/Globulin Ratio 0.8 (1.1-2.2) L 09/04/17 04:38 Triglycerides 113 mg/dL (< 150) 09/04/17 04:38 Cholesterol 121 mg/dL (< 200) 09/04/17 04:38 LDL Cholesterol, Calc 71 mg/dL (0-99) 09/04/17 04:38 VLDL Cholesterol, Calc 23 mg/dL (< 31) 09/04/17 04:38 HDL Cholesterol 27 mg/dL (40-59) L 09/04/17 04:38 Cholesterol/HDL Ratio 4.5 (0-4.9) 09/04/17 04:38 - Imaging EKG: image reviewed (74bpm SR SINUS RHYTHM POSSIBLE LEFT ATRIAL ENLARGEMENT LEFT ANTERIOR FASCICULAR BLOCK NONSPECIFIC ST ABNORMALITY) Anesthesia Exam Vital Signs Temp Pulse Resp BP Pulse Ox 09/04/17 07:09 97.8 F 78 16 166/102 90 09/04/17 03:59 98.4 F 68 18 162/89 95 09/04/17 00:21 98.0 F 83 14 112/66 93 09/03/17 20:10 97.7 F 67 18 184/88 96 09/03/17 16:22 98.2 F 75 18 168/91 96 09/03/17 13:35 98.3 F 74 18 209/103 98 10/20/17 13:17 16 190/100 09/03/17 13:06 98 09/03/17 11:26 98 F 82 20 190/100 96 Intake and Output 09/03/17 09/04/17 09/04/17 23:59 07:59 15:59 Intake Total 100 / 100 Output Total 0 / 0 Balance 0 / 0 100 / 100 Intake: IV Fluids 100 / 100 Zosyn 3.375 GM In Dextrose 5% ( 100 / 100 Minibag+) 100 ML 100 ML @ 25 mls/hr IVPB Q8H [facility] Rx#: [id number] Output: Urine 0 / 0 Other: # Voids 1 1 Weight 74 kg Blood Glucose* 109 100 Patient Weight 09/04/17 23:59 Weight 74 kg Height: 5'8" Weight: 163# bmi = 25 NPO (# of Hours): MNoc - HEENT Pupil (Motor): Pupils equal, EOMI Mallampati: III Teeth: Poor dentition Oral Opening: Greater than 3 - COMPANY CONTROLLER LOC: Oriented COMPANY CONTROLLER Motor: Normal RUE, Normal LUE, Normal RLE, Normal LLE, Normal Face COMPANY CONTROLLER Sensory: Normal: RUE, LUE, RLE, LLE, Face - Cardiac Rhythm: Regular Murmur: None - Pulmonary Breath Sounds: bilateral Clear Respiratory Effort: Symmetrical Anesthesia Assess/Plan ASA Score: 3 (CAD, CHF, HTN, DM, Chol, Paroxysmal Afib) Modified [place] Scale for Level of Consciousness: Cooperative, oriented, and tranquil Anesthetic Plan: MAC Monitoring Plan: Standard Monitors Recovery Plan: Other Anes Supervising Prov Stmt: PT seen/evaluated, R&B discussed questions answered and consent obtained. Terri Buckley MD
[2017-09-04] MEDS ORDERED: Metoprolol XL (24 HR) Succ 50 MG TAB.ER.24H PO SCH (09:00)
[2017-09-04] MEDS ORDERED: *HR* FentaNYL (PF) 100 MCG/2 ML VIAL ONE (09:13)
[2017-09-04] MEDS ORDERED: Lidocaine -MPF 2% 2 ML VIAL ONE (09:13)
[2017-09-04] MEDS ORDERED: Propofol 500 MG/50 ML INFUS..BTL ONE (09:13)
[2017-09-04] MEDS ORDERED: *HR* Midazolam HCl 2 MG/2 ML VIAL ONE (09:13)
[2017-09-04] MEDS ORDERED: Bupivacaine/Clonidine Syringe 1 EACH SYRINGE ONE (09:51)
[2017-09-04] MEDS ORDERED: Lidocaine -MPF 4% 5 ML AMPUL ONE (10:34)
--- NOTE | 2017-09-04 12:50 | Anesthesia Evaluation Post Op ---
Date of Encounter: 09/04/17 Time of Encounter: 11:20 - Lungs Lungs: Clear Ascult./Percussion - Airway Airway: Non-obstructed - Cardiovascular Regular Rate, Baseline Rhythm - Mental Status Mental Status: Alert & Oriented, Answers Appropriately - Pain Pain Scale: 0 Pain Scale used: Numeric (1 - 10) - Nausea Vomiting Nausea Vomiting: Not Present - Hydration Hydration: NPO, Has not voided - Discharge PostOp Status: Transfer Patient to floor Anes Supervising Prov Stmt: Pt seen/evaluated, VSS and has met criteria for discharge to floor. - MD Marcio
[2017-09-04] MEDS ORDERED: Levofloxacin 500 MG/100 ML 500 MG/100 ML BAG IVPB SCH (13:00)
[2017-09-04] MEDS ORDERED: Levofloxacin 750 MG/150 ML 750 MG/150 ML BAG IVPB SCH (13:00)
[2017-09-04] MEDS: traMADol 50 MG TABLET PO PRN ×2 (14:22→20:26)
--- NOTE | 2017-09-04 15:34 | Internal Med Progress Note ---
Date of Encounter: 09/04/17 Time of Encounter: 12:30 - Assessment and plan (1) Diabetic foot ulcer Current Visit: Yes Status: Acute Assessment and plan: Has right heel ulcer for at least 3-4 months, follows with Podiatry since 4 weeks, was advised to present to ER by Podiatry due to non-healing heel ulcer and purulent discharge. Received several antibiotic courses, including Augmentin and Levaquin, which he does not tolerate well due to persistent nausea and vomiting. Wound culture from 08/31 grows Pseudomonas and he is started on IV Levaquin and Zosyn, will discontinue Levaquin at this time. F/up blood cultures. Podiatry on board, patient underwent I&D of right heel abscess today; follow up intraoperative wound cultures. Pain control with PRN IV Morphine and PO Tramadol. 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 Continue Imdur, beta teofilo, ACEI and monitor closely. Qualifiers: Hypertension type: essential hypertension Qualified Code(s): I10 - Essential (primary) hypertension (3) DM II (diabetes mellitus, type II), controlled Current Visit: Yes Status: Chronic Assessment and plan: Blood sugars noted to be well-controlled. HbA1C 6.2%. Continue Accucheck blood glucose monitoring and sliding scale insulin as needed. Diabetic diet. Qualifiers: Diabetes mellitus complication status: with skin complications Diabetes mellitus complication detail: with foot ulcer Diabetes mellitus remote computer terminal operator insulin use: without residential use Qualified Code(s): E11.621 - Type 2 diabetes mellitus with foot ulcer; L97.509 - Non-pressure chronic ulcer of other part of unspecified foot with unspecified severity; L97.509 - Non- pressure chronic ulcer of other part of unspecified foot with unspecified severity; L97.509 - Non-pressure chronic ulcer of other part of unspecified foot with unspecified severity; L97.509 - Non-pressure chronic ulcer of other part of unspecified foot with unspecified severity (4) CAD (coronary artery disease) Current Visit: Yes Status: Chronic Assessment and plan: continue ASA, statin, beta teofilo. Qualifiers: Coronary Disease-Associated Artery/Lesion type: [place] artery [place] vs. transplanted heart: [place] heart Associated angina: without angina Qualified Code(s): I25.10 - Atherosclerotic heart disease of [place] coronary artery without angina pectoris (5) CHF (congestive heart failure) Current Visit: Yes Status: Chronic Qualifiers: Congestive heart failure type: unspecified congestive heart failure type Congestive heart failure chronicity: chronic Qualified Code(s): I50.9 - Heart failure, unspecified (6) COPD (chronic obstructive pulmonary disease) Current Visit: Yes Status: Chronic Assessment and plan: not in acute exacerbation. Continue PRN bronchodilators and supplemental O2. Qualifiers: COPD type: unspecified COPD Qualified Code(s): J44.9 - Chronic obstructive pulmonary disease, unspecified (7) Hyperkalemia Current Visit: Yes Status: Resolved Assessment and plan: serum potassium improved to 4.9 today. (8) Atrial fibrillation Current Visit: Yes Status: Chronic Assessment and plan: currently rate-controlled. Continue beta teofilo, not on anticoagulation at home. Qualifiers: Atrial fibrillation type: paroxysmal Qualified Code(s): I48.0 - Paroxysmal atrial fibrillation - Subjective Interval history: Returned from OR. Reports feeling very well; no fever/chills, shortness of breath; improved nausea, vomiting, antibiotics make him nauseous usually. - Constitutional Vitals: Temp Pulse Resp BP Pulse Ox 97.6 F 68 14 146/80 97 09/04/17 11:22 09/04/17 11:22 09/04/17 11:22 09/04/17 11:22 09/04/17 11:22 General appearance: Present: cooperative, A&O X 3, answers questions appropriately - Respiratory Respiratory exam: Present: CTAB. Absent: accessory muscle use, rales, rhonchi, wheezes - Cardiovascular Cardiovascular exam: Present: RRR, +S1, +S2. Absent: diastolic murmur, gallop, rubs, systolic murmur - GI/Abdominal GI/Abdominal exam: Present: normal bowel sounds, soft, no peritoneal signs. Absent: distended, tenderness - Extremities Exam Extremities exam: Present: warm, radial pulses palpable and symmetrical. Absent : calf tenderness, cyanotic, pedal edema Additional comments: right heel with surgical dressing, soaked with Betadine; - Neurological Exam Neurological exam: Present: CN II-XII intact, oriented X3, no focal deficits. Absent: pronater drift, facial droop, speech deficit Internal Medicine: Result - Labs CBC & Chem 7: 09/04/17 04:38 09/04/17 04:38 - ABG Interpretation ABG results: PT/INR, D-dimer PT 12.7 Seconds (9.4-12.1) H 09/04/17 04:38 Consult Discharge Plan - Plan Referrals: William Donohue DO [Primary Care Provider] -
[2017-09-04] MEDS ORDERED: Magnesium Sulfate 2 GM in D5% in Water 100 ML IVPB ONE (15:50)
[2017-09-04] MEDS: 0.9 % Sodium Chloride 1,000 ML IVC SCH (16:41)
[2017-09-04] MEDS: Isosorbide MONOnitrate (24 HR) 30 MG TAB.ER.24H PO SCH (20:27)
[2017-09-05] MEDS: Acetaminophen 325 MG TABLET PO PRN (00:49)
[2017-09-05 04:20] LABS: Basophils % 0.3 %; Eosinophils # 0.5 K/mcL (0.0-0.6); Eosinophils % 4.1 %; Hematocrit 37.7 % (37.5-50.1); Hemoglobin 12.5 g/dL (12.9-16.9); Immature Granulocytes % 0.6 % (0-4); Lymphocytes # 2.7 K/mcL (0.6-4.6); Lymphocytes % 23.3 %; Mean Corpuscular HGB Conc 33.2 g/dL (31.6-35.5); Mean Corpuscular Volume 84.5 fL (83.0-100.0); Mean Platelet Volume 11.3 fL (9.4-12.4); Monocytes % 8.3 %; Neutrophils # 7.3 K/mcL (1.6-8.9); Platelet Count 189 K/mcL (140-400); Red Blood Count 4.46 M/mcL (4.19-5.50); Red Cell Distribution Width 13.6 % (11.5-14.5); Segmented Neutrophils % 63.4 %
[2017-09-05] MEDS: Piperacillin/Tazobactam 3.375 GM in D5% in Water (Mini-Bag+) 100 ML IVPB SCH ×3 (04:25→21:25)
[2017-09-05 04:26] LABS: BUN/Creatinine Ratio 14 (6-26); Blood Urea Nitrogen 17 mg/dL (8-26); Carbon Dioxide 25 mEq/L (19-29); Chloride 103 mEq/L (98-109); Glucose 120 mg/dL (70-99); Potassium 4.5 mEq/L (3.5-4.5); Sodium 136 mEq/L (136-145); eGFR For African Americans > 60 (> 60); eGFR For Non-African Americans 58 (> 60)
[2017-09-05 04:27] LABS: Alanine Aminotransferase 10 Units/L (0-55); Albumin 3.1 g/dL (3.5-5.0); Albumin/Globulin Ratio 0.8 (1.1-2.2); Alkaline Phosphatase 91 Units/L (38-126); Aspartate Amino Transferase 13 Units/L (5-34); Bilirubin,Total 0.4 mg/dL (0.2-1.2); Globulin 3.8 g/dL (2.4-3.5); Magnesium 1.7 mg/dL (1.6-2.6); Osmolality,Calculated 285 (280-300); Total Protein 6.9 g/dL (6.0-8.3)
[2017-09-05] MEDS: *HR* Heparin 5,000 UNIT/ML VIAL SQ SCH ×3 (04:37→21:26)
[2017-09-05] MEDS: 0.9 % Sodium Chloride 1,000 ML IVC SCH ×2 (04:37→15:50)
[2017-09-05] MEDS: Cyanocobalamin (B-12) 1,000 MCG TABLET PO SCH (07:55)
[2017-09-05] MEDS: Cholecalciferol (D-3) 1,000 UNIT TABLET PO SCH (07:55)
[2017-09-05] MEDS: Metoprolol XL (24 HR) Succ 50 MG TAB.ER.24H PO SCH (07:55)
[2017-09-05] MEDS: traMADol 50 MG TABLET PO PRN ×2 (07:55→15:49)
[2017-09-05] MEDS: Aspirin Enteric Coated 81 MG Tablet PO SCH (07:56)
[2017-09-05] MEDS: Insulin LISPRO 300 UNITS/3 ML VIAL SQ SCH ×4 (07:56→21:23)
--- NOTE | 2017-09-05 08:45 | Operative Note ---
Date of procedure: 09/04/17 Pre-op diagnosis: Abscess with possible osteomyelitis, right heel Post-op diagnosis: same Procedure: Incision and drainage with debridement through the dermis, epidermis, subcutaneous tissue, fascia. Bone biopsy right calcaneus. Anesthesia: FABRICIO Surgeon: Gary Soares Estimated blood loss (cc): 5 Specimen: tissue cultures, bone cultures, bone biopsy all right calcaneus. Condition: stable Disposition: floor Procedure in Detail: The patient was administered IV antibiotics. The patient was transported to the operative room and placed on operating table. Following anesthesia the extremity was scrubbed prepped and draped in the usual aseptic fashion. A timeout was performed. An incision was made on te posterior aspect of the heel and deepened through subcutaneous tissue with care taken to identify and retract all vital neurovascular structures. The areas of the abscess on the posterior aspect of the heel were noted and there is approximately 3, this is where the incision was made connecting the 3 prominent abscess locations. The incision was approximately 3 cm in length and somewhat longitudinal in nature. There was purulence noted near the Achilles tendon, the incision and drainage was performed and then irrigation and debridement was performed. The debridement consisted of epidermis, dermis, subcutaneous, tendon, bone for the bone biopsy. The bone did not appear to be weekend and was biopsied to be sent to pathology and for culture. The wound was also cultured prior to irrigation. After the site was adequately irrigated with pulse irrigation a Betadine dressing was applied to allow for continued drainage. The wound was not closed. The pneumatic tourniquet was deflated and a hyperemic response was noted to all digits. The patient tolerated the procedure and anesthesia well and was transported to the recovery room with vital signs stable and vascular status intact to both feet. The patient will be readmitted to the floor per anesthesia. The patient will remain nonweightbearing.
--- NOTE | 2017-09-05 11:36 | Internal Med Progress Note ---
Date of Encounter: 09/05/17 Time of Encounter: 11:35 - Assessment and plan (1) Diabetic foot ulcer Current Visit: Yes Status: Acute Assessment and plan: Chronic nonhealing right heel ulcer. Wound culture from 08/31 grows Pseudomonas and he is on IV Zosyn, D2. Preliminary blood, wound cultures negative; bone Gram stain shows moderate WBC, no bacteria. Podiatry on board, patient underwent I&D of right heel abscess on 09/04; follow up intraoperative wound cultures. Pain control with PRN IV Morphine and PO Tramadol. Will consult ID for antibiotic duration. Medically stable. PT/OT evaluation. 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 CurrenTly well-controlled. continue Imdur, beta teofilo, ACEI and monitor closely. Qualifiers: Hypertension type: essential hypertension Qualified Code(s): I10 - Essential (primary) hypertension (3) DM II (diabetes mellitus, type II), controlled Current Visit: Yes Status: Chronic Assessment and plan: Blood sugars noted to be well-controlled. HbA1C 6.2%. Continue Accucheck blood glucose monitoring and sliding scale insulin as needed. Diabetic diet. 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 Qualifiers: Coronary Disease-Associated Artery/Lesion type: [place] artery [place] vs. transplanted heart: [place] heart Associated angina: without angina Qualified Code(s): I25.10 - Atherosclerotic heart disease of [place] coronary artery without angina pectoris (5) CHF (congestive heart failure) Current Visit: Yes Status: Chronic Qualifiers: Congestive heart failure type: unspecified congestive heart failure type Congestive heart failure chronicity: chronic Qualified Code(s): I50.9 - Heart failure, unspecified (6) COPD (chronic obstructive pulmonary disease) Current Visit: Yes Status: Chronic Qualifiers: COPD type: unspecified COPD Qualified Code(s): J44.9 - Chronic obstructive pulmonary disease, unspecified (7) Hyperkalemia Current Visit: Yes Status: Resolved (8) Atrial fibrillation Current Visit: Yes Status: Chronic Assessment and plan: currently rate-controlled. Continue beta teofilo, not on anticoagulation at home. Qualifiers: Atrial fibrillation type: paroxysmal Qualified Code(s): I48.0 - Paroxysmal atrial fibrillation - Subjective Interval history: Feels well; right heel pain minimal, relieved with Tylenol. No nausea, vomiting , abdominal pain; had bloody drainage from dressing yesterday, improved now. - Constitutional Vitals: Temp Pulse Resp BP Pulse Ox 98.3 F 83 18 122/87 96 09/05/17 10:02 09/05/17 10:02 09/05/17 10:02 09/05/17 10:02 09/05/17 10:02 General appearance: Present: cooperative, A&O X 3, answers questions appropriately - Respiratory Respiratory exam: Present: CTAB. Absent: accessory muscle use, rales, rhonchi, wheezes - Cardiovascular Cardiovascular exam: Present: RRR, +S1, +S2. Absent: diastolic murmur, gallop, rubs, systolic murmur - GI/Abdominal GI/Abdominal exam: Present: normal bowel sounds, soft, no peritoneal signs. Absent: distended, tenderness - Extremities Exam Extremities exam: Present: warm, radial pulses palpable and symmetrical. Absent : calf tenderness, cyanotic, pedal edema Additional comments: right heel surgical dressing clan and dry Internal Medicine: Result - Labs CBC & Chem 7: 09/05/17 04:03 09/05/17 04:03 Labs: Short CBC 09/05/17 Range/Units 04:03 WBC 11.5 H (4.3-11.1) K/mcL Hgb 12.5 L (12.9-16.9) g/dL Hct 37.7 (37.5-50.1) % Plt Count 189 (140-400) K/mcL Neutrophils # 7.3 (1.6-8.9) K/mcL BMP 09/05/17 04:03 Sodium 136 Potassium 4.5 Chloride 103 Carbon Dioxide 25 BUN 17 Creatinine 1.21 Glucose 120 H Calcium 9.0 Liver Function 09/05/17 Range/Units 04:03 Total Bilirubin 0.4 (0.2-1.2) mg/dL AST 13 (5-34) Units/L ALT 10 (0-55) Units/L Alkaline Phosphatase 91 (38-126) Units/L Albumin 3.1 L (3.5-5.0) g/dL - ABG Interpretation ABG results: PT/INR, D-dimer PT 12.7 Seconds (9.4-12.1) H 09/04/17 04:38 - VTE Documentation of Mechanical Device: Intermittent pneumatic compression device Consult Discharge Plan - Plan Referrals: William Donohue DO [Primary Care Provider] -
--- NOTE | 2017-09-05 17:39 | Electrocardiograph Report ---
[address] [place], [place] [address] Test Date: 2017-09-03 Pat Name: Junior Connolly Department: 103 Room: [facility] Gender: M Assistant Administrator: : [id number] Requested By: Chiki Berger Order Number: [id number] Reading MD: Wesley Phillips MD Measurements Intervals [place] Rate: 76 P: 48 IA: 184 QRS: -40 QRSD: 97 T: 133 QT: 375 QTc: 405 Interpretive Statements SINUS RHYTHM LEFT ATRIAL ENLARGEMENT MARKED LEFT AXIS DEVIATION LATERAL ISCHEMIA Electronically Signed On 09-05-2017 17:37:54 EDT by Wesley Phillips MD
[2017-09-05] MEDS: Isosorbide MONOnitrate (24 HR) 30 MG TAB.ER.24H PO SCH (19:32)
--- NOTE | 2017-09-05 22:19 | Podiatry Progress Note ---
Date of Encounter: 09/05/17 Time of Encounter: 22:16 - Assessment and Plan (1) Diabetic foot ulcer Current Visit: Yes Status: Acute Dressing was changed at bedside today. Due to mild erythema we will continue to monitor to determine whether additional washout may be needed. Continue IV antibiotics per infectious disease. Patient will receive daily dressing changes consisting of Betadine soaked gauze and Kerlix. Patient will avoid any pressure on the posterior aspect of his heel. Awaiting cultures to determine further plan. At this time the plan consists of IV antibiotics and dressing changes. Qualifiers: Diabetic foot ulcer location: heel Diabetes mellitus type: type 2 Laterality: right Non-pressure ulcer stage: unspecified non-pressure ulcer stage Qualified Code(s): E11.621 - Type 2 diabetes mellitus with foot ulcer; L97.419 - Non-pressure chronic ulcer of right heel and midfoot with unspecified severity; L97.419 - Non-pressure chronic ulcer of right heel and midfoot with unspecified severity; L97.419 - Non-pressure chronic ulcer of right heel and midfoot with unspecified severity; L97.419 - Non-pressure chronic ulcer of right heel and midfoot with unspecified severity Subjective Principal diagnosis: Right heel abscess Interval history: Patient relates that over the last few hours he has had only mild pain. Patient denies any other pedal complaints. Objective - Vital Signs Vital Signs: Vital Signs Temp Pulse Resp BP Pulse Ox 09/05/17 20:19 97.9 F 57 20 127/79 98 09/05/17 16:40 97.7 F 85 16 142/83 95 09/05/17 10:02 98.3 F 83 18 122/87 96 09/05/17 05:16 98.0 F 77 19 125/80 95 09/05/17 01:12 98.2 F 81 73/43 96 Intake and Output 09/05/17 09/05/17 09/05/17 07:59 15:59 23:59 Intake Total 1000 / 1000 1640 / 1640 340 / 340 Output Total 300 / 300 900 / 900 Balance 700 / 700 740 / 740 340 / 340 Intake: IV Fluids 1000 / 1000 1100 / 1100 100 / 100 0.9 % Sodium Chloride 1,000 ML 1000 / 1000 1000 / 1000 @ 100 mls/hr IVC .Q10H [facility] Rx#: [id number] Zosyn 3.375 GM In Dextrose 5% ( 100 / 100 100 / 100 Minibag+) 100 ML 100 ML @ 25 mls/hr IVPB Q8H [facility] Rx#: [id number] Oral 540 / 540 240 / 240 Output: Urine 300 / 300 900 / 900 Other: Meal Lunch Dinner Percent of Meal Consumed 60% 50% # Voids 1 Blood Glucose* 110 120 127 - Exam Exam: Pedal pulses palpable. Capillary fill time intact to digits. Mild erythema surrounding the incision site. No actively draining purulence at this time. - Lab Result Diagrams: 09/05/17 04:03 09/05/17 04:03 Labs: Abnormal lab results WBC 11.5 K/mcL (4.3-11.1) H 09/05/17 04:03 Hgb 12.5 g/dL (12.9-16.9) L 09/05/17 04:03 ESR 68 mm/hr (0-10) H 09/03/17 12:11 PT 12.7 Seconds (9.4-12.1) H 09/04/17 04:38 Est GFR (Non-Af Amer) 58 (> 60) L 09/05/17 04:03 Glucose 120 mg/dL (70-99) H 09/05/17 04:03 POC Glucose 127 (58-89) H 09/05/17 19:58 Hemoglobin A1c 6.2 % (-5.6) H 09/04/17 04:38 C-Reactive Protein 6 mg/L (Less than 5) H 09/03/17 12:11 Albumin 3.1 g/dL (3.5-5.0) L 09/05/17 04:03 Globulin 3.8 g/dL (2.4-3.5) H 09/05/17 04:03 Albumin/Globulin Ratio 0.8 (1.1-2.2) L 09/05/17 04:03 HDL Cholesterol 27 mg/dL (40-59) L 09/04/17 04:38 - VTE Documentation of Mechanical Device: Intermittent pneumatic compression device Consult Discharge Plan - Plan Referrals: William Donohue DO [Primary Care Provider] -
[2017-09-06 00:50] LABS: Basophils % 0.4 %; Eosinophils # 0.5 K/mcL (0.0-0.6); Hematocrit 37.2 % (37.5-50.1); Hemoglobin 11.9 g/dL (12.9-16.9); Immature Granulocytes % 0.6 % (0-4); Lymphocytes # 2.5 K/mcL (0.6-4.6); Lymphocytes % 22.8 %; Mean Corpuscular Hemoglobin 27.7 pg (28.0-33.3); Mean Corpuscular Volume 86.5 fL (83.0-100.0); Mean Platelet Volume 11.4 fL (9.4-12.4); Monocytes # 0.9 K/mcL (0.0-1.3); Neutrophils # 6.8 K/mcL (1.6-8.9); Platelet Count 188 K/mcL (140-400); Red Cell Distribution Width 13.7 % (11.5-14.5); Segmented Neutrophils % 63.2 %
[2017-09-06 01:03] LABS: Albumin/Globulin Ratio 0.8 (1.1-2.2); Bilirubin,Total 0.3 mg/dL (0.2-1.2); Calcium 8.8 mg/dL (8.6-10.8); Globulin 3.8 g/dL (2.4-3.5); Potassium 4.8 mEq/L (3.5-4.5); Total Protein 6.8 g/dL (6.0-8.3)
[2017-09-06] MEDS: Piperacillin/Tazobactam 3.375 GM in D5% in Water (Mini-Bag+) 100 ML IVPB SCH ×3 (04:21→21:01)
[2017-09-06] MEDS: *HR* Heparin 5,000 UNIT/ML VIAL SQ SCH ×3 (05:43→21:01)
[2017-09-06] MEDS: Ondansetron 4 MG/2 ML VIAL IVP PRN (06:57)
[2017-09-06] MEDS: Metoprolol XL (24 HR) Succ 50 MG TAB.ER.24H PO SCH (07:06)
[2017-09-06] MEDS: Aspirin Enteric Coated 81 MG Tablet PO SCH (07:06)
[2017-09-06] MEDS ORDERED: Furosemide 40 MG/4 ML VIAL IVP ONE (07:07)
[2017-09-06] MEDS ORDERED: Nitroglycerin 25 MG/250 ML INFUS..BTL IVC SCH ×2 (07:30→07:45)
[2017-09-06] MEDS: Insulin LISPRO 300 UNITS/3 ML VIAL SQ SCH ×4 (08:44→21:21)
--- NOTE | 2017-09-06 09:14 | Internal Med Progress Note ---
Date of Encounter: 09/06/17 Time of Encounter: 09:12 - Assessment and plan (1) Hypertensive urgency Current Visit: Yes Status: Acute Assessment and plan: likely secondary to volume overload/pulmonary edema. Did not respond to IV Nitroglycerine drip. Transfer to stepdown unit, started on IV nicardipine drip with appropriate blood pressure control. Continue oral home medications and wean off IV medications. Continue telemetry monitoring. Chest x-ray shows cardiomegaly and mild pulmonary vascular congestion. We will hold IV fluids. Start low-dose IV Lasix. Urine output monitoring. Check 2-D echocardiogram. (2) Diabetic foot ulcer Current Visit: Yes Status: Acute Assessment and plan: Chronic nonhealing right heel ulcer. Wound culture from 08/31 grows Pseudomonas and he is on IV Zosyn, D3. Preliminary blood, wound cultures negative; bone cultures so far negative. Podiatry on board, patient underwent I&D of right heel abscess on 09/04; follow up final intraoperative wound cultures. Pain control with PRN IV Morphine and PO Tramadol. Consulted ID for antibiotic duration. PT/OT evaluation. Qualifiers: Diabetic foot ulcer location: heel Diabetes mellitus type: type 2 Laterality: right Non-pressure ulcer stage: unspecified non-pressure ulcer stage Qualified Code(s): E11.621 - Type 2 diabetes mellitus with foot ulcer; L97.419 - Non-pressure chronic ulcer of right heel and midfoot with unspecified severity; L97.419 - Non-pressure chronic ulcer of right heel and midfoot with unspecified severity; L97.419 - Non-pressure chronic ulcer of right heel and midfoot with unspecified severity; L97.419 - Non-pressure chronic ulcer of right heel and midfoot with unspecified severity (3) HTN (hypertension) Current Visit: Yes Status: Chronic Assessment and plan: Plan as above. Qualifiers: Hypertension type: essential hypertension Qualified Code(s): I10 - Essential (primary) hypertension (4) DM II (diabetes mellitus, type II), controlled Current Visit: Yes Status: Chronic Assessment and plan: Blood sugars noted to be well-controlled. HbA1C 6.2%. Continue Accucheck blood glucose monitoring and sliding scale insulin as needed. Diabetic diet. Qualifiers: Diabetes mellitus complication status: with skin complications Diabetes mellitus complication detail: with foot ulcer Diabetes mellitus penitentiary insulin use: without penitentiary use Qualified Code(s): E11.621 - Type 2 diabetes mellitus with foot ulcer; L97.509 - Non-pressure chronic ulcer of other part of unspecified foot with unspecified severity; L97.509 - Non- pressure chronic ulcer of other part of unspecified foot with unspecified severity; L97.509 - Non-pressure chronic ulcer of other part of unspecified foot with unspecified severity; L97.509 - Non-pressure chronic ulcer of other part of unspecified foot with unspecified severity (5) CAD (coronary artery disease) Current Visit: Yes Status: Chronic Assessment and plan: continue ASA, statin, beta teofilo. Qualifiers: Coronary Disease-Associated Artery/Lesion type: [place] artery [place] vs. transplanted heart: [place] heart Associated angina: without angina Qualified Code(s): I25.10 - Atherosclerotic heart disease of [place] coronary artery without angina pectoris (6) CHF (congestive heart failure) Current Visit: Yes Status: Chronic Assessment and plan: plan as above. Qualifiers: Congestive heart failure type: unspecified congestive heart failure type Congestive heart failure chronicity: acute on chronic Qualified Code(s): I50.9 - Heart failure, unspecified (7) COPD (chronic obstructive pulmonary disease) Current Visit: Yes Status: Chronic Assessment and plan: not in acute exacerbation. Continue PRN bronchodilators and supplemental O2. Qualifiers: COPD type: unspecified COPD Qualified Code(s): J44.9 - Chronic obstructive pulmonary disease, unspecified (8) Hyperkalemia Current Visit: Yes Status: Resolved (9) Atrial fibrillation Current Visit: Yes Status: Chronic Assessment and plan: currently rate-controlled. Continue beta teofilo, not on anticoagulation at home. Qualifiers: Atrial fibrillation type: paroxysmal Qualified Code(s): I48.0 - Paroxysmal atrial fibrillation - Subjective Interval history: [place] well until last night. Had new onset of sudden shortness of breath and respiratory distress early this morning; uncontrolled BP with systolic in 190- 200s; received a dose of Lasix and was placed on nasal cannula and started on Nitroglycerine drip; Feels better now; no chest pain, dyspnea, palpitations, fever/chills. - Constitutional Vitals: Temp Pulse Resp BP Pulse Ox 98 F 95 20 169/116 97 09/06/17 09:07 09/06/17 09:07 09/06/17 09:07 09/06/17 09:07 09/06/17 09:07 General appearance: Present: cooperative, A&O X 3, answers questions appropriately - Respiratory Respiratory exam: Present: CTAB, wheezes (end-expiratory wheezing B/L bases- ? cardiac asthma). Absent: accessory muscle use, rales, rhonchi - Cardiovascular Cardiovascular exam: Present: RRR, +S1, +S2, systolic murmur. Absent: diastolic murmur, gallop, rubs - GI/Abdominal GI/Abdominal exam: Present: normal bowel sounds, soft, no peritoneal signs. Absent: distended, tenderness - Extremities Exam Extremities exam: Present: full ROM, warm, radial pulses palpable and symmetrical. Absent: calf tenderness, cyanotic, pedal edema Additional comments: right heel in dry surgical dressing - Neurological Exam Neurological exam: Present: CN II-XII intact, oriented X3, no focal deficits. Absent: pronater drift, facial droop, speech deficit Internal Medicine: Result - Labs CBC & Chem 7: 09/06/17 00:20 09/06/17 00:20 Labs: Short CBC 09/06/17 Range/Units 00:20 WBC 10.8 (4.3-11.1) K/mcL Hgb 11.9 L (12.9-16.9) g/dL Hct 37.2 L (37.5-50.1) % Plt Count 188 (140-400) K/mcL Neutrophils # 6.8 (1.6-8.9) K/mcL BMP 09/06/17 00:20 Sodium 138 Potassium 4.8 H Chloride 106 Carbon Dioxide 24 BUN 17 Creatinine 1.42 H Glucose 131 H Calcium 8.8 Cardiac Enzymes 09/06/17 Range/Units 07:23 Troponin I 0.03 (0-0.03) ng/mL Liver Function 09/06/17 Range/Units 00:20 Total Bilirubin 0.3 (0.2-1.2) mg/dL AST 13 (5-34) Units/L ALT 9 (0-55) Units/L Alkaline Phosphatase 85 (38-126) Units/L Albumin 3.0 L (3.5-5.0) g/dL - ABG Interpretation ABG results: PT/INR, D-dimer PT 12.7 Seconds (9.4-12.1) H 09/04/17 04:38 - Impressions Impressions Chest X-Ray 09/06/17 07:28 IMPRESSION: Cardiomegaly with pulmonary vascular congestion D/ / Alberto Singh MD / Alberto Singh MD Interpreting Provider: Alberto Singh MD - VTE Documentation of Mechanical Device: Intermittent pneumatic compression device Consult Discharge Plan - Plan Referrals: William Donohue DO [Primary Care Provider] - (SENT WEB REQUEST ON 09-06-17 @ [id number])
[2017-09-06] MEDS ORDERED: niCARdipine 40 MG/200 ML MLS IVC ONE (09:29)
[2017-09-06] MEDS: niCARdipine 40 MG/200 ML MLS IVC SCH ×2 (09:45→17:56)
[2017-09-06] MEDS: Cholecalciferol (D-3) 1,000 UNIT TABLET PO SCH (09:55)
[2017-09-06] MEDS: Cyanocobalamin (B-12) 1,000 MCG TABLET PO SCH (09:55)
--- NOTE | 2017-09-06 16:58 | Event Note ---
Date of Encounter: 09/06/17 2N9- Koby Thomas- 77M initially admitted to spine surgery service and underwent lumbar fusion surgery, after which he developed acute on chronic renal failure, uncontrolled diabetes and hyperkalemia and hospitalist service was consulted. Patient was noted to have anterior STEMI, had left heart catheterization and received 1 stent, on dual antiplatelet therapy. Also developed atrial fibrillation with RVR, now rate controlled. Cardiology signed off. Initially JUDD improved, now having second episode, likely contrast-induced nephropathy due to left heart catheterization. Nephrology on board. Plan for discharge to inpatient rehabilitation at [facility] when serum creatinine stabilizes. He continues to be in pain due to recent back surgery, otherwise stable. 2N1- Junior Cathleen- 77M referred by podiatry for nonhealing right heel ulcer. Underwent incision and drainage, debridement.
[2017-09-06] MEDS: Furosemide 40 MG/4 ML VIAL IVP SCH (18:13)
[2017-09-06] MEDS: Isosorbide MONOnitrate (24 HR) 30 MG TAB.ER.24H PO SCH (21:01)
[2017-09-06] MEDS: Acetaminophen 325 MG TABLET PO PRN (21:06)
[2017-09-06] MEDS ORDERED: Lactulose Oral Soln 20 GM/30 ML UDC PO ONE (23:46)
[2017-09-07] MEDS: Acetaminophen 325 MG TABLET PO PRN ×2 (02:53→16:04)
[2017-09-07] MEDS: Ondansetron 4 MG/2 ML VIAL IVP PRN (02:53)
[2017-09-07] MEDS: Piperacillin/Tazobactam 3.375 GM in D5% in Water (Mini-Bag+) 100 ML IVPB SCH ×2 (04:54→11:46)
[2017-09-07 05:54] LABS: Basophils % 0.4 %; Eosinophils # 0.3 K/mcL (0.0-0.6); Eosinophils % 2.5 %; Hematocrit 41.4 % (37.5-50.1); Hemoglobin 13.3 g/dL (12.9-16.9); Immature Granulocytes % 0.6 % (0-4); Lymphocytes # 2.6 K/mcL (0.6-4.6); Lymphocytes % 22.6 %; Mean Corpuscular HGB Conc 32.1 g/dL (31.6-35.5); Mean Corpuscular Hemoglobin 27.3 pg (28.0-33.3); Mean Platelet Volume 11.6 fL (9.4-12.4); Monocytes % 8.9 %; Neutrophils # 7.4 K/mcL (1.6-8.9); Platelet Count 243 K/mcL (140-400); Red Blood Count 4.87 M/mcL (4.19-5.50)
[2017-09-07 06:08] LABS: Albumin 3.5 g/dL (3.5-5.0); Albumin/Globulin Ratio 0.8 (1.1-2.2); Bilirubin,Total 0.4 mg/dL (0.2-1.2); Calcium 9.8 mg/dL (8.6-10.8); Globulin 4.4 g/dL (2.4-3.5); Potassium 3.8 mEq/L (3.5-4.5); Total Protein 7.9 g/dL (6.0-8.3)
[2017-09-07] MEDS: *HR* Heparin 5,000 UNIT/ML VIAL SQ SCH ×3 (06:31→20:58)
[2017-09-07] MEDS: niCARdipine 40 MG/200 ML MLS IVC SCH ×2 (08:10→08:21)
[2017-09-07] MEDS: Aspirin Enteric Coated 81 MG Tablet PO SCH (08:20)
[2017-09-07] MEDS: Metoprolol XL (24 HR) Succ 50 MG TAB.ER.24H PO SCH (08:20)
[2017-09-07] MEDS: Cholecalciferol (D-3) 1,000 UNIT TABLET PO SCH (08:20)
[2017-09-07] MEDS: Furosemide 40 MG/4 ML VIAL IVP SCH (08:20)
[2017-09-07] MEDS: Insulin LISPRO 300 UNITS/3 ML VIAL SQ SCH ×4 (08:20→20:58)
[2017-09-07] MEDS: Cyanocobalamin (B-12) 1,000 MCG TABLET PO SCH (08:20)
--- NOTE | 2017-09-07 11:50 | Infectious Disease Consult ---
Date of Encounter: 09/07/17 Time of Encounter: 11:48 Assessment and Plan (1) Leukocytosis Status: Acute Assessment and plan: The patient had a WBC of 12.1 on admission. Likely secondary to right foot wound infection. Continues to have minimally elevated WBC. Continue to trend. Qualifiers: Leukocytosis type: unspecified Qualified Code(s): D72.829 - Elevated white blood cell count, unspecified (2) Abscess Status: Acute Assessment and plan: Location: Right heel. Causative organism likely PSEA per 08/31/17 wound culture. No imaging was done prior to surgery. ESR 68, CRP 6. Podiatry consulted. Status post I & D 09/04/17. Operative note reviewed. No evidence of bony destruction, but the tendon was involved. Bone biopsy pending. Intra-operative cultures are negative despite gross purulence noted intra-op. The patient had been on oral antibiotics prior to surgery. Continue wound care and activity restrictions per the podiatry team. Continue Zosyn 3.375 grams IV Q8H for now. Will likely transition to Levaquin when ready for discharge. Await pathology. If evidence of OM noted, will likely need 6 weeks of IV antibiotics. If negative, will plan to treat for 2-4 weeks and base duration on how well the patient does clinically. Monitor renal function closely and dose-adjust antibiotics. We will continue to follow. (3) Cellulitis Status: Acute Assessment and plan: Causative organism likely Pseudomonas per previous wound culture. Location: Right foot. Likely secondary to diabetic foot ulcer. Improved, but the patient continues to have some mild erythema around the surgical site. Continue antibiotics as above. Qualifiers: Site of cellulitis: extremity Site of cellulitis of extremity: lower extremity Laterality: right Qualified Code(s): L03.115 - Cellulitis of right lower limb (4) JUDD (acute kidney injury) Status: Acute Assessment and plan: Etiology unclear, but perhaps secondary to recent lasix use. Continue to trend. Dose-adjust antibiotics. Avoid nephrotoxins as able. (5) Diabetic foot ulcer Status: Acute Assessment and plan: Location: Right heel. Etiology not entirely clear. Continue wound care per podiatry's recommendations. Qualifiers: Diabetic foot ulcer location: heel Diabetes mellitus type: type 2 Laterality: right Non-pressure ulcer stage: unspecified non-pressure ulcer stage Qualified Code(s): E11.621 - Type 2 diabetes mellitus with foot ulcer; L97.419 - Non-pressure chronic ulcer of right heel and midfoot with unspecified severity; L97.419 - Non-pressure chronic ulcer of right heel and midfoot with unspecified severity; L97.419 - Non-pressure chronic ulcer of right heel and midfoot with unspecified severity; L97.419 - Non-pressure chronic ulcer of right heel and midfoot with unspecified severity (6) Hypertensive urgency Status: Acute (7) GERD (gastroesophageal reflux disease) Status: Chronic Qualifiers: Esophagitis presence: esophagitis presence not specified Qualified Code(s) : K21.9 - Gastro-esophageal reflux disease without esophagitis (8) Atrial fibrillation Status: Chronic Qualifiers: Atrial fibrillation type: paroxysmal Qualified Code(s): I48.0 - Paroxysmal atrial fibrillation (9) DM II (diabetes mellitus, type II), controlled Status: Chronic Assessment and plan: HgbA1C 6.5%. Recommend aggressive glucose monitoring and control to promote wound healing and prevent re-infection. Management per the primary team. Qualifiers: Diabetes mellitus complication status: with skin complications Diabetes mellitus complication detail: with foot ulcer Diabetes mellitus watermaster insulin use: without watermaster use Qualified Code(s): E11.621 - Type 2 diabetes mellitus with foot ulcer; L97.509 - Non-pressure chronic ulcer of other part of unspecified foot with unspecified severity; L97.509 - Non- pressure chronic ulcer of other part of unspecified foot with unspecified severity; L97.509 - Non-pressure chronic ulcer of other part of unspecified foot with unspecified severity; L97.509 - Non-pressure chronic ulcer of other part of unspecified foot with unspecified severity Infectious Disease HPI - Data of Consult Patient: new to practice Consult date: 09/07/17 Requesting Physician: Shira Cheung MD Primary Care Provider: William Donohue DO - Consult Narrative Reason for consult: Right foot infection History of present illness: Mr. Connolly is a 77 year old male with a past medical history of A. fib, diabetes, GERD, hyperlipidemia, hypertension, and CAD status post CABG. The patient was admitted to the hospital September 03 for a diabetic foot ulcer. We are consult September 07 for antibiotic recommendations regarding the right foot infection. Briefly, the patient is a 77-year-old male with past medical history as stated above. The patient has had an ongoing nonhealing ulcer to the right heel for the past 2 months. Etiology of the ulcer is unclear, but the patient states that for the past 2 weeks had increased pain, redness, and drainage. He was evaluated by Dr. Becerril and placed on an oral course of Augmentin. Approximately 2 days later, a wound culture that was obtained on August 31 came back positive for pansensitive pseudomonas. Levaquin was added to the antibiotic course and the patient took this for 2 days before presenting to the emergency department. Upon arrival, the patient was afebrile and hemodynamically stable. He had a mild leukocytosis as well as an ESR 68 with a CRP of 6. The patient was started on IV Levaquin and IV Zosyn. Blood cultures were obtained 1 set. The patient was admitted to the hospital for further evaluation. Since admission, podiatry as evaluated the patient at the patient to the operating room and completed an I&D of the right heel. The operative note has been reviewed and reveals that there was debridement of the epidermis, dermis, subcutaneous, and tendon. Bone biopsy was obtained and sent to pathology. According to the operative note, there does not appear to be any bone involvement at that time. Antibiotics were transitioned to IV Zosyn only. The patient had an episode of chest pain, hypertension, and shortness of breath yesterday that he thinks was an anxiety attack. He was placed on a Cardene drip and transferred to [facility]. The patient has remained afebrile and hemodynamically stable otherwise. He continues to have a mild leukocytosis. He is currently on Zosyn 3.375 g IV every 8 hours. He has developed an acute kidney injury with a serum creatinine of 1.9 to today. During my exam, the patient states that his foot feels better. He reports that he was having severe pain in the right foot with redness and drainage from the wound. He again states he is unsure what originally cause leukostasis been there since the beginning of June. He denies any fevers or chills or rigors. He denies any headache or neck pain. He reports some intermittent chronic shortness of breath, but denies cough or chest pain. He denies any abdominal pain, but states when he was taking oral antibiotics he did experience nausea with vomiting. He also reports diarrhea the day prior to admission. He states that his appetite has been good. He otherwise denies complaints. The patient lives at home with his who is unwell. He has 2 daughters who help take care of him and his . 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 He had a total shoulder replacement in June and has been off work since then. As no pets. He denies any recent travel. He does not smoke or do drugs. He does report some intermittent alcohol use. CC: Shira Cheung MD Past Med Surg Social Fam HX - Past Medical History Attestation: Yes The following information was validated with the patient. Source: patient, old records reviewed, nursing notes reviewed Medical history: atrial fibrillation, diabetes, GERD, hyperlipidemia, hypertension, other Psychiatric history: no psych history - Past Surgical History Surgical History: cataract, coronary bypass (CABG), herniorrhaphy, orthopedic, other (left shoulder replacement) - Social History Smoking Status: Former smoker Packs per day: 3/ PPD - Reports quitting in 2001 Smokeless Tobacco Status: Yes Alcohol use: occasionally Drug use: none Occupational status: retired Current living situation: Home, With Family Activity Level: Independent ambulation Recent Out of Country Travel Within the Last 8 Weeks: No Exposure or Possible Exposure to Illness During Travel: No - Family History Father Race: Family Member Ethnicity: Non- Living Status: Age at : 41 Cause of : Metastatic cancer Hx Family Cancer: Yes Mother Race: Family Member Ethnicity: Non- Living Status: Age at : 74 Cause of : Breast cancer Hx Family Respiratory Disorders: Yes (Emphysema) Hx Family Cancer: Yes (Breast) Brother Race: Family Member Ethnicity: Non- Living Status: Age at : 63 Cause of : Heart failure Hx Family Cardiac Disorders: Yes (CAD) Sister Race: Family Member Ethnicity: Non- Living Status: Age at : 60 Cause of : NH Hx Family Cardiac Disorders: Yes (CAD) Hx Family Endocrine Disorder: Yes (DM) Infectious Disease-CN:Meds Aspirin [Adult Low Dose Aspirin EC] 81 mg PO QAM 12/17/15 [History] Atorvastatin Calcium [Lipitor] 80 mg PO HS 12/17/15 [History] Clopidogrel [Plavix] 75 mg PO HS 02/02/16 [History] Isosorbide MONOnitrate (24 HR) [Imdur] 30 mg PO HS 12/17/15 [History] Lisinopril [Zestril] 10 mg PO HS 12/17/15 [History] Metformin HCl [Glucophage] 850 mg PO BID 12/17/15 [History] Nitroglycerin [Nitrostat] 0.4 mg SL Q5M PRN 12/17/15 [History] Cholecalciferol (Vitamin D3) [Vitamin D3] 1,000 unit PO QAM 01/01/16 [History] traMADol [Ultram] 50 mg PO Q6HR PRN 01/01/16 [History] Metoprolol XL (24 HR) Succ [Toprol XL] 50 mg PO DAILY 09/03/17 [History] levoFLOXacin [Levaquin] 500 mg PO DAILY 09/03/17 [History] 3 Allergy/AdvReac Type Severity Reaction Status Date / Time hydrocodone [From [place]] AdvReac Vomiting Verified 09/03/17 12:26 Oxycodone AdvReac Vomiting Verified 09/03/17 12:26 All systems: reviewed and no additional remarkable complaints except as stated Exam - Constitutional Vitals: Temp Pulse Resp BP Pulse Ox 98.2 F 76 18 115/77 98 09/07/17 07:25 09/07/17 08:00 09/07/17 07:25 09/07/17 07:25 09/07/17 07:25 General appearance: average body habitus, cooperative, no acute distress - Head Head exam: Present: atraumatic, normal inspection, normocephalic - Eye Eye exam: Present: EOMI. Absent: PERRL (Right pupil 4mm and non-reactive. Left pupil 3mm and reactive.) - ENT ENT exam: Present: mucous membranes moist - Neck Neck exam: Present: normal inspection - Respiratory Respiratory exam: Present: CTAB. Absent: rales, respiratory distress, rhonchi, wheezes - Cardiovascular Cardiovascular exam: Present: irregular rhythm. Absent: tachycardia - GI/Abdominal GI/Abdominal exam: Present: normal bowel sounds, soft. Absent: distended, tenderness - Extremities Exam Extremities exam: Present: pedal edema (Posterior heel), tenderness (right heel) Additional comments: Right heel wound as documented below. - Expanded Lower Extremity Exam 1 - Erythema noted to the heel with tenderness. Diagonal, linear surgical wound with 100% necroctic tissue and scant purulent drainage noted. No fluctuance. - Neurological Exam Neurological exam: Present: alert, oriented X3, no focal deficits - Psychiatric Psychiatric exam: Present: normal affect, normal mood - Skin Skin exam: Present: dry, intact, normal color, warm Infectious Disease CN: Results - Labs CBC & Chem 7: 09/07/17 04:55 09/07/17 04:55 Cultures: Cultures 09/04/17 10:35 Anaerobic Culture - Preliminary Other-Specify in Comments At this time, no anaerobic growth is present. The culture will be finalized after 5 days of incubation. 09/04/17 10:41 Surgical Biopsy Culture - Preliminary Other-Specify in Comments 09/04/17 10:35 Wound Culture - Final Other-Specify in Comments No growth. 09/03/17 12:11 Blood Culture - Preliminary Peripheral Venipuncture No growth. - VTE Documentation of Mechanical Device: Intermittent pneumatic compression device Consult Discharge Plan - Plan Referrals: William Donohue DO [Primary Care Provider] - 09/14/17 11:30 am ()
[2017-09-07] MEDS ORDERED: LEVOFLOXACIN 750 MG/150 ML IVPB SCH (16:00)
--- NOTE | 2017-09-07 16:01 | Electrocardiograph Report ---
[address] [place], [place] [address] Test Date: 2017-09-06 Pat Name: Junior Connolly Department: 114 Room: 2N01 Gender: M Finished Goods Inspector: : 1940 Requested By: Cooper Herring Order Number: [id number] Reading MD: Jacob Hall Measurements Intervals Harper Rate: 55 P: 50 WI: 164 QRS: -42 QRSD: 93 T: 138 QT: 407 QTc: 395 Interpretive Statements SINUS BRADYCARDIA POSSIBLE LEFT ATRIAL ENLARGEMENT MARKED LEFT AXIS DEVIATION ST DEVIATION AND MODERATE T-WAVE ABNORMALITY, CONSIDER LATERAL ISCHEMIA Electronically Signed On 09-07-2017 15:59:38 EDT by Jacob Hall
--- NOTE | 2017-09-07 16:49 | Internal Med Progress Note ---
Date of Encounter: 09/07/17 Time of Encounter: 10:00 - Assessment and plan (1) Diabetic foot ulcer Current Visit: Yes Status: Acute Assessment and plan: Chronic nonhealing right heel ulcer Wound culture from 08/31 grows Pseudomonas and he is on IV Zosyn, add Levaquin Preliminary blood, wound cultures negative; bone cultures so far negative Podiatry on board, patient underwent I&D of right heel abscess on 09/04; follow up final intraoperative wound cultures Appreciate ID input Pain control with PRN IV Morphine and PO Tramadol. Consulted ID for antibiotic duration. PT/OT evaluation Qualifiers: Diabetic foot ulcer location: heel Diabetes mellitus type: type 2 Laterality: right Non-pressure ulcer stage: unspecified non-pressure ulcer stage Qualified Code(s): E11.621 - Type 2 diabetes mellitus with foot ulcer; L97.419 - Non-pressure chronic ulcer of right heel and midfoot with unspecified severity; L97.419 - Non-pressure chronic ulcer of right heel and midfoot with unspecified severity; L97.419 - Non-pressure chronic ulcer of right heel and midfoot with unspecified severity; L97.419 - Non-pressure chronic ulcer of right heel and midfoot with unspecified severity (2) HTN (hypertension) Current Visit: Yes Status: Chronic Assessment and plan: Essential hypertension, controlled, monitor Hypertensive urgency is now improved Continue Rudy Cunningham Qualifiers: Hypertension type: essential hypertension Qualified Code(s): I10 - Essential (primary) hypertension (3) DM II (diabetes mellitus, type II), controlled Current Visit: Yes Status: Chronic Assessment and plan: Type 2 diabetes mellitus, [id number], hyperglycemia Blood sugars noted to be well-controlled. HbA1C 6.2%. Continue Accucheck blood glucose monitoring and sliding scale insulin as needed. Diabetic diet. Qualifiers: Diabetes mellitus complication status: with skin complications Diabetes mellitus complication detail: with foot ulcer Diabetes mellitus [facility] insulin use: without [facility] use Qualified Code(s): E11.621 - Type 2 diabetes mellitus with foot ulcer; L97.509 - Non-pressure chronic ulcer of other part of unspecified foot with unspecified severity; L97.509 - Non- pressure chronic ulcer of other part of unspecified foot with unspecified severity; L97.509 - Non-pressure chronic ulcer of other part of unspecified foot with unspecified severity; L97.509 - Non-pressure chronic ulcer of other part of unspecified foot with unspecified severity (4) CAD (coronary artery disease) Current Visit: Yes Status: Chronic Assessment and plan: Stable - continue ASA, Plavix, statin, beta teofilo Qualifiers: Coronary Disease-Associated Artery/Lesion type: [place] artery [place] vs. transplanted heart: [place] heart Associated angina: without angina Qualified Code(s): I25.10 - Atherosclerotic heart disease of [place] coronary artery without angina pectoris (5) CHF (congestive heart failure) Current Visit: Yes Status: Chronic Assessment and plan: Mild LV diastolic dysfunction, LVEF 50-55% Need Toprol-XL Qualifiers: Congestive heart failure type: unspecified congestive heart failure type Congestive heart failure chronicity: acute on chronic Qualified Code(s): I50.9 - Heart failure, unspecified (6) COPD (chronic obstructive pulmonary disease) Current Visit: Yes Status: Chronic Assessment and plan: not in acute exacerbation - Continue PRN bronchodilators and supplemental O2 Qualifiers: COPD type: unspecified COPD Qualified Code(s): J44.9 - Chronic obstructive pulmonary disease, unspecified (7) Atrial fibrillation Current Visit: Yes Status: Chronic Assessment and plan: currently rate-controlled. Continue beta teofilo, not on anticoagulation at home Qualifiers: Atrial fibrillation type: paroxysmal Qualified Code(s): I48.0 - Paroxysmal atrial fibrillation (8) DVT prophylaxis Current Visit: Yes Status: Acute Assessment and plan: Continue heparin subcutaneous - Time Spent With Patient 25 - 35 minutes - Subjective Interval history: Examined this morning. Patient is awake and alert. Not in any distress. Denies chest pain. No fever. Hemodynamically stable. Granddaughter is at bedside. States he feels better today. Complains of mild pain in his right foot. Pain improves with pain medication. No other acute medical complaints. - Constitutional Vitals: Temp Pulse Resp BP Pulse Ox 97.8 F 77 18 119/76 98 09/07/17 16:26 09/07/17 16:26 09/07/17 16:26 09/07/17 16:26 09/07/17 16:26 General appearance: Present: cooperative, A&O X 3, pleasant, no acute distress, answers questions appropriately - Head Head exam: Present: atraumatic - Eye Eye exam: Present: EOMI - ENT ENT exam: Present: mucous membranes moist - Respiratory Respiratory exam: Present: CTAB. Absent: chest wall tenderness, rales, rhonchi , wheezes, tachypnea - Cardiovascular Cardiovascular exam: Present: RRR, +S1, +S2 - GI/Abdominal GI/Abdominal exam: Present: soft. Absent: distended, firm, guarding, tenderness - Extremities Exam Extremities exam: Present: radial pulses palpable and symmetrical. Absent: calf tenderness, cyanotic, pedal edema Additional comments: Right foot dressing intact, no bleeding or discharge. - Neurological Exam Neurological exam: Present: alert, oriented X3, no focal deficits. Absent: facial droop, speech deficit Internal Medicine: Result - Labs CBC & Chem 7: 09/07/17 04:55 09/07/17 04:55 Labs: Short CBC 09/07/17 Range/Units 04:55 WBC 11.4 H (4.3-11.1) K/mcL Hgb 13.3 (12.9-16.9) g/dL Hct 41.4 (37.5-50.1) % Plt Count 243 (140-400) K/mcL Neutrophils # 7.4 (1.6-8.9) K/mcL BMP 09/07/17 04:55 Sodium 141 Potassium 3.8 D Chloride 98 Carbon Dioxide 30 H BUN 28 H D Creatinine 1.92 H Glucose 109 H Calcium 9.8 Liver Function 09/07/17 Range/Units 04:55 Total Bilirubin 0.4 (0.2-1.2) mg/dL AST 24 (5-34) Units/L ALT 19 (0-55) Units/L Alkaline Phosphatase 92 (38-126) Units/L Albumin 3.5 (3.5-5.0) g/dL - ABG Interpretation ABG results: PT/INR, D-dimer PT 12.7 Seconds (9.4-12.1) H 09/04/17 04:38 - Impressions Impressions Echocardiogram 09/06/17 09:10 Impressions: LVEF 50-55%. Moderate asymmetric septal hypertrophy. No LVOTO. Mild left ventricular diastolic dysfunction. Normal RV size with low normal function. Mild-moderate aortic regurgitation. Moderate aortic stenosis. Mild mitral regurgitation. Mild pulmonic regurgitation. No pulmonary hypertension by TR gradient. Left Ventricular Wall Motion: Rest Echo Findings The mid anterior septal and mid inferior lateral sosa were not visualized. All other wall segments showed normal motion. Findings: Study Quality * Technically adequate exam. ECG Findings * Normal sinus rhythm. Left Ventricle * Moderate asymmetric septal hypertrophy. No LVOTO. * Mild left ventricular diastolic dysfunction. * LVEF 50-55%. Right Ventricle * Normal RV size with low normal function. Aortic Valve * Aortic valve not well visualized. * Moderately calcified aortic valve leaflets. * Mild-moderate aortic regurgitation. * Moderate aortic stenosis. Mitral Valve * Normal mitral valve structure. * No mitral stenosis. * Mild mitral annular calcification * Mild mitral regurgitation. Tricuspid Valve * No tricuspid regurgitation. * Normal tricuspid valve structure. Pulmonic Valve * Pulmonic valve is not well visualized. * No pulmonic stenosis. * Mild pulmonic regurgitation. Pulmonary Artery * Pulmonary artery not well visualized. Left Atrium * Moderately dilated left atrium. Right Atrium * Normal right atrial size. Aorta * Normally sized aortic root. Pericardium * There is no pericardial effusion present. Interatrial Septum * Interatrial septum not well evaluated. IVC * The IVC is not well evaluated. - VTE Documentation of Mechanical Device: Intermittent pneumatic compression device Consult Discharge Plan - Plan Referrals: William Donohue DO [Primary Care Provider] - 09/14/17 11:30 am ()
[2017-09-07] MEDS: Isosorbide MONOnitrate (24 HR) 30 MG TAB.ER.24H PO SCH (20:57)
[2017-09-08] MEDS: Piperacillin/Tazobactam 3.375 GM in D5% in Water (Mini-Bag+) 100 ML IVPB SCH ×3 (00:15→17:46)
[2017-09-08] MEDS: traMADol 50 MG TABLET PO PRN (00:22)
[2017-09-08] MEDS: Acetaminophen 325 MG TABLET PO PRN ×3 (04:07→15:56)
[2017-09-08 05:21] LABS: Basophils # 0.1 K/mcL (0.0-0.2); Basophils % 0.5 %; Eosinophils # 0.4 K/mcL (0.0-0.6); Eosinophils % 3.1 %; Hemoglobin 13.1 g/dL (12.9-16.9); Immature Granulocytes % 0.5 % (0-4); Lymphocytes # 2.9 K/mcL (0.6-4.6); Lymphocytes % 22.8 %; Mean Corpuscular HGB Conc 32.8 g/dL (31.6-35.5); Mean Corpuscular Volume 85.5 fL (83.0-100.0); Mean Platelet Volume 11.4 fL (9.4-12.4); Monocytes % 7.7 %; Neutrophils # 8.3 K/mcL (1.6-8.9); Platelet Count 235 K/mcL (140-400); Red Blood Count 4.68 M/mcL (4.19-5.50); Red Cell Distribution Width 14.1 % (11.5-14.5); Segmented Neutrophils % 65.4 %
[2017-09-08 05:45] LABS: Albumin 3.3 g/dL (3.5-5.0); Albumin/Globulin Ratio 0.8 (1.1-2.2); Bilirubin,Total 0.4 mg/dL (0.2-1.2); Calcium 9.4 mg/dL (8.6-10.8); Globulin 4.3 g/dL (2.4-3.5); Potassium 3.9 mEq/L (3.5-4.5); Total Protein 7.6 g/dL (6.0-8.3)
[2017-09-08] MEDS: *HR* Heparin 5,000 UNIT/ML VIAL SQ SCH ×3 (06:26→21:00)
[2017-09-08] MEDS: Insulin LISPRO 300 UNITS/3 ML VIAL SQ SCH ×4 (07:49→20:56)
[2017-09-08] MEDS: Cyanocobalamin (B-12) 1,000 MCG TABLET PO SCH (07:56)
[2017-09-08] MEDS: Aspirin Enteric Coated 81 MG Tablet PO SCH (07:56)
[2017-09-08] MEDS: Cholecalciferol (D-3) 1,000 UNIT TABLET PO SCH (07:56)
[2017-09-08] MEDS: Metoprolol XL (24 HR) Succ 50 MG TAB.ER.24H PO SCH (07:56)
--- NOTE | 2017-09-08 11:34 | Discharge Summary ---
Date of Encounter: 09/08/17 Time of Encounter: 09:10 - Discharge Diagnosis (1) Diabetic foot ulcer Priority: Primary Status: Acute Comments: Chronic nonhealing right heel ulcer Wound culture from 08/31 grows Pseudomonas and he is on IV Zosyn, add Levaquin Preliminary blood, wound cultures negative; bone cultures so far negative Podiatry on board, patient underwent I&D of right heel abscess on 09/04; follow up final intraoperative wound cultures Appreciate ID input - advised to switch to IV Levaquin for 4 weeks Pain control with Tylenol. PT/OT evaluation Anticipate discharge to SNF today Qualifiers: Diabetic foot ulcer location: heel Diabetes mellitus type: type 2 Laterality: right Non-pressure ulcer stage: unspecified non-pressure ulcer stage Qualified Code(s): E11.621 - Type 2 diabetes mellitus with foot ulcer; L97.419 - Non-pressure chronic ulcer of right heel and midfoot with unspecified severity; L97.419 - Non-pressure chronic ulcer of right heel and midfoot with unspecified severity; L97.419 - Non-pressure chronic ulcer of right heel and midfoot with unspecified severity; L97.419 - Non-pressure chronic ulcer of right heel and midfoot with unspecified severity (2) HTN (hypertension) Priority: Secondary Status: Chronic Comments: Essential hypertension, controlled, monitor Hypertensive urgency is now improved Continue Rudy Cunningham Qualifiers: Hypertension type: essential hypertension Qualified Code(s): I10 - Essential (primary) hypertension (3) DM II (diabetes mellitus, type II), controlled Priority: Secondary Status: Chronic Comments: Type 2 diabetes mellitus, [id number], hyperglycemia Blood sugars noted to be well-controlled. HbA1C 6.2%. Diabetic diet. Qualifiers: Diabetes mellitus complication status: with skin complications Diabetes mellitus complication detail: with foot ulcer Diabetes mellitus assisted insulin use: without assisted use Qualified Code(s): E11.621 - Type 2 diabetes mellitus with foot ulcer; L97.509 - Non-pressure chronic ulcer of other part of unspecified foot with unspecified severity; L97.509 - Non- pressure chronic ulcer of other part of unspecified foot with unspecified severity; L97.509 - Non-pressure chronic ulcer of other part of unspecified foot with unspecified severity; L97.509 - Non-pressure chronic ulcer of other part of unspecified foot with unspecified severity (4) CAD (coronary artery disease) Priority: Secondary Status: Chronic Comments: Stable - continue ASA, Plavix, statin, beta teofilo Qualifiers: Coronary Disease-Associated Artery/Lesion type: [place] artery [place] vs. transplanted heart: [place] heart Associated angina: without angina Qualified Code(s): I25.10 - Atherosclerotic heart disease of [place] coronary artery without angina pectoris (5) CHF (congestive heart failure) Priority: Secondary Status: Chronic Comments: Mild LV diastolic dysfunction, LVEF 50-55% Continue Toprol-XL Qualifiers: Congestive heart failure type: unspecified congestive heart failure type Congestive heart failure chronicity: acute on chronic Qualified Code(s): I50.9 - Heart failure, unspecified (6) COPD (chronic obstructive pulmonary disease) Priority: Secondary Status: Chronic Comments: not in acute exacerbation - Continue PRN bronchodilators Qualifiers: COPD type: unspecified COPD Qualified Code(s): J44.9 - Chronic obstructive pulmonary disease, unspecified (7) Atrial fibrillation Priority: Secondary Status: Chronic Comments: currently rate-controlled. Continue beta teofilo, not on anticoagulation at home Qualifiers: Atrial fibrillation type: paroxysmal Qualified Code(s): I48.0 - Paroxysmal atrial fibrillation - Discharge Medications Prescriptions: Acetaminophen [Tylenol] 650 mg PO Q6HR PRN #30 tablet PRN Reason: Mild Pain (1-3) Ipratropium/Albuterol Neb [Duoneb] 3 ml IH [id number] PRN #30 inhsol PRN Reason: Shortness Of Breath/Wheezing Levofloxacin 750 MG/150 ML [Levaquin Premix 750mg/150 mL] 750 mg IVPB DAILY 20 Days #20 bag Home Medications: Aspirin [Adult Low Dose Aspirin EC] 81 mg PO QAM 12/17/15 [History] Atorvastatin Calcium [Lipitor] 80 mg PO HS 12/17/15 [History] Clopidogrel [Plavix] 75 mg PO HS 12/17/15 [History] Isosorbide MONOnitrate (24 HR) [Imdur] 30 mg PO HS 12/17/15 [History] Lisinopril [Zestril] 10 mg PO HS 12/17/15 [History] Metformin HCl [Glucophage] 850 mg PO BID 12/17/15 [History] Nitroglycerin [Nitrostat] 0.4 mg SL Q5M PRN 12/17/15 [History] Cholecalciferol (Vitamin D3) [Vitamin D3] 1,000 unit PO QAM 01/01/16 [History] Metoprolol XL (24 HR) Succ [Toprol Xl] 50 mg PO DAILY 09/03/17 [History] Acetaminophen [Tylenol] 650 mg PO Q6HR PRN #30 tablet 09/08/17 [Rx] Calcium Carbonate [Tums] 500 mg PO QAM tab.chew 09/08/17 [Rx] Cyanocobalamin (B-12) [Vitamin B12] 1,000 mcg PO QAM tablet 09/08/17 [Rx] Ipratropium/Albuterol Neb [Duoneb] 3 ml IH [id number] PRN #30 inhsol 09/08/17 [Rx] Levofloxacin 750 MG/150 ML [Levaquin Premix 750mg/150 mL] 750 mg IVPB DAILY 20 Days #20 bag 09/08/17 [Rx] Allergies/Adverse Reactions: 3 Allergy/AdvReac Type Severity Reaction Status Date / Time hydrocodone [From [place]] AdvReac Vomiting Verified 09/03/17 12:26 Oxycodone AdvReac Vomiting Verified 09/03/17 12:26 Procedures/tests Complete & Pending: Procedures Performed prior 72 hours Category Date Time Status EKG [ECG 12 lead ECG] [ECG] Stat Y 09/06/17 07:11 Completed EV echocardiogram Routine Y 09/06/17 09:10 Completed Date of admission: 09/04/17 12:27 Primary care physician: William Donohue DO Consults: 09/05/17 14:21 Consult to Occupational Therapy [CONS] Routine Comment: Evaluate, develop and implement POC Reason for Consult: Right heel I&D, debridement for diabetic foot ulcer Consult to Physical Therapy [CONS] Routine Comment: Evaluate, develop and implement POC Reason for Consult: Right heel I&D, debridement for diabetic foot ulcer 09/06/17 09:44 Consult to Infectious Diseases [CONS] Routine Consulting Provider: [facility] [place] Reason for Consult: Right heel ulcer, wound culture grew Pseudomonas, now negative Call Completed: Yes 09/07/17 07:16 Consult to Chemical Radiation Technician [CONS] Routine Reason for SW Consult: [facility] FOR IV ATB Anticipated date of discharge: 09/08/17 - Patient Status Disposition: Transfer SNF Condition: Fair Functional capacity at discharge: uses cane/walker Overall status at discharge: patient is progressing back to baseline - Discharge Instructions Instructions: Levofloxacin (Injection), Diabetic Foot Care (DC), Incision and Drainage (DC) Follow Up With: Janeth Fowler CNP [Advanced Practice Nurse] - 09/22/17 9:00 am Jacob Becerril DPM [Partnered Physician] - 09/10/17 1:15 pm William Donohue DO [Primary Care Provider] - 09/14/17 11:30 am () Celina Guerrero MD [Partnered Physician] - (Janeth Fowler said she would take care of this appointment) - Diet and Activity Activity: as per physical therapy, increase activity as tolerated, resume usual activities as tolerated Diet: advance to your usual diet, diabetic diet Hospital course: Mr. Connolly is a 77 year old male with past medical history of atrial fibrillation, diabetes, GERD, hyperlipidemia, coronary artery disease and hypertension. He presented to the ED with complaints of right heel which was painful. Patient's a previous wound cultures positive for Pseudomonas. She was admitted for diabetic foot ulcer. Podiatry was consulted. He was started on IV Levaquin and IV Zosyn empirically. We continued all his home medications. Patient underwent I&D with debridement of the right heel abscess. He tolerated procedure well. Antibiotics were continued and patient was also on IV pain medication. Infectious disease was also consulted. Advised to continue IV antibiotics for at least 4-6 weeks. Patient does have an extended peripheral IV to which she can receive IV antibiotics. Patient is scheduled to go to the [facility]. He has undergone MRI of right foot to rule out osteomyelitis and report is pending. Podiatry and ID are following patient. Patient is tolerating oral diet well and in bleeding with assistance. He states he feels better and has no other acute complaints. He had no other acute events or complications during this hospital stay. Patient and his family members have been explained about his condition and plan of care in detail. They understood and agreed. No unanswered questions. Patient has been advised close outpatient follow-up with ID and podiatry. Advised return if symptoms worsen. He will need dressing changes daily at the [facility]. - Time Spent with Patient Total time spent providing and/or coordinating discharge services: Greater than 30 minutes - Constitutional Vitals: Temp Pulse Resp BP Pulse Ox 98.6 F 90 16 109/81 96 09/08/17 11:02 09/08/17 11:02 09/08/17 11:02 09/08/17 11:02 09/08/17 11:02 General appearance: Present: cooperative, A&O X 3, pleasant, no acute distress, answers questions appropriately - Head Head exam: Present: atraumatic - Eye Eye exam: Present: EOMI - ENT ENT exam: Present: mucous membranes moist - Respiratory Respiratory exam: Present: CTAB. Absent: rales, rhonchi, wheezes, tachypnea - Cardiovascular Cardiovascular exam: Present: RRR, +S1, +S2 - GI/Abdominal GI/Abdominal exam: Present: soft. Absent: distended, firm, guarding, tenderness - Extremities Exam Extremities exam: Present: radial pulses palpable and symmetrical. Absent: calf tenderness, cyanotic, pedal edema Additional comments: Right foot dressing intact, no bleeding and no discharge - Neurological Exam Neurological exam: Present: alert, oriented X3, no focal deficits. Absent: facial droop, speech deficit - VTE Documentation of Mechanical Device: Intermittent pneumatic compression device
--- NOTE | 2017-09-08 11:44 | Physician Discharge Referral ---
ExtendedCare Referral Info Provider in Charge after Transfer: PCP Institutional Level of Care: Skilled - Diagnosis (1) Diabetic foot ulcer Priority: Primary Status: Acute (2) HTN (hypertension) Priority: Secondary Status: Chronic (3) DM II (diabetes mellitus, type II), controlled Priority: Secondary Status: Chronic (4) CAD (coronary artery disease) Priority: Secondary Status: Chronic (5) CHF (congestive heart failure) Priority: Secondary Status: Chronic (6) COPD (chronic obstructive pulmonary disease) Priority: Secondary Status: Chronic (7) Atrial fibrillation Priority: Secondary Status: Chronic Prognosis: Good Aware of Diagnosis: Patient, Family Aware of Prognosis: Patient, Family - Transfer Medications Prescriptions: Acetaminophen [Tylenol] 650 mg PO Q6HR PRN #30 tablet PRN Reason: Mild Pain (1-3) Ipratropium/Albuterol Neb [Duoneb] 3 ml IH [id number] PRN #30 inhsol PRN Reason: Shortness Of Breath/Wheezing Levofloxacin 750 MG/150 ML [Levaquin Premix 750mg/150 mL] 750 mg IVPB DAILY 20 Days #20 bag Home Medications: Aspirin [Adult Low Dose Aspirin EC] 81 mg PO QAM 12/17/15 [History] Atorvastatin Calcium [Lipitor] 80 mg PO HS 12/17/15 [History] Clopidogrel [Plavix] 75 mg PO HS 12/17/15 [History] Isosorbide MONOnitrate (24 HR) [Imdur] 30 mg PO HS 12/17/15 [History] Lisinopril [Zestril] 10 mg PO HS 12/17/15 [History] Metformin HCl [Glucophage] 850 mg PO BID 12/17/15 [History] Nitroglycerin [Nitrostat] 0.4 mg SL Q5M PRN 12/17/15 [History] Cholecalciferol (Vitamin D3) [Vitamin D3] 1,000 unit PO QAM 01/01/16 [History] Metoprolol XL (24 HR) Succ [Toprol Xl] 50 mg PO DAILY 09/03/17 [History] Acetaminophen [Tylenol] 650 mg PO Q6HR PRN #30 tablet 09/08/17 [Rx] Calcium Carbonate [Tums] 500 mg PO QAM tab.chew 09/08/17 [Rx] Cyanocobalamin (B-12) [Vitamin B12] 1,000 mcg PO QAM tablet 09/08/17 [Rx] Ipratropium/Albuterol Neb [Duoneb] 3 ml IH [id number] PRN #30 inhsol 09/08/17 [Rx] Levofloxacin 750 MG/150 ML [Levaquin Premix 750mg/150 mL] 750 mg IVPB DAILY 20 Days #20 bag 09/08/17 [Rx] Allergies/Adverse Reactions: 3 Allergy/AdvReac Type Severity Reaction Status Date / Time hydrocodone [From [place]] AdvReac Vomiting Verified 09/03/17 12:26 Oxycodone AdvReac Vomiting Verified 09/03/17 12:26 - Respiratory Orders Smoking Cessation: Smoking cessation has been advised. For more information, call the [place] Tobacco Quit Line at 8-887-CBAV-NOW. - Lab Orders Lab Orders: CBC, Other (include drug levels w/frequency) (BMP in 3 days) - Ancillary Orders May use pressure relief devices daily prn - Advance Directives Code Status: Full Code - Mobility Orders Ambulate - Rehabiliation Orders Rehab Potential: Good Rehab Orders: Evaluation for Physical Therapy, Evaluation for Occupational Therapy - Treatments Skin tear care topically daily PRN per policy List/Other: Pharmacy to dose Levaquin - Diet Orders Cardiac CERTIFICATION: I certify that the transfer of the above named patient to an Extended Care Facility is necessary for the continuing treatment of the diagnosis listed. The above information is true and accurate reflection of patient's current condition. Confidential - Redisclosure prohibited without a patient's written consent.
[2017-09-08] MEDS ORDERED: FLUARIX QUAD 2017-18 36MOS UP/PF 0.5 ML SYRINGE IM ONE (12:28)
--- NOTE | 2017-09-08 13:10 | Infectious Disease Progress No ---
Date of Encounter: 09/08/17 Time of Encounter: 13:04 - Assessment and Plan (1) Leukocytosis Current Visit: Yes Status: Acute The patient had a WBC of 12.1 on admission. Likely secondary to right foot wound infection. Continues to have minimally elevated WBC. Continue to trend. Qualifiers: Leukocytosis type: unspecified Qualified Code(s): D72.829 - Elevated white blood cell count, unspecified (2) Abscess Current Visit: Yes Status: Acute Location: Right heel. Causative organism likely PSEA per 08/31/17 wound culture. No imaging was done prior to surgery. ESR 68, CRP 6. Podiatry consulted. Status post I & D 09/04/17. Operative note reviewed. No evidence of bony destruction, but the tendon was involved. Bone biopsy positive for active chronic osteomyelitis. Intra-operative cultures are negative despite gross purulence noted intra-op. The patient had been on oral antibiotics prior to surgery. Continue wound care and activity restrictions per the podiatry team. The patient is scheduled to go to [facility] later today. Discontinue Zosyn and start Levaquin 750mg IV daily. Pathology positive for osteomyelitis. Will plan on treating with IV antibiotics for six weeks. Monitor renal function closely and dose-adjust antibiotics. Get weekly CBC, BUN/Cr, ESR, and CRP every Wednesday for the duration of treatment. Weekly EPIV care. Follow up with ID 09/22/17 at 0900. (3) Osteomyelitis Current Visit: Yes Status: Acute Causative organism likely Pseudomonas. Secondary to right heel infection. Status post I & D of the right heel by Dr. Soares 09/04/17. Continue antibiotics as above. Continue wound care per the podiatry team. Qualifiers: Osteomyelitis type: acute hematogenous Osteomyelitis location: foot Laterality: right Qualified Code(s): M86.071 - Acute hematogenous osteomyelitis, right ankle and foot (4) Cellulitis Current Visit: Yes Status: Acute Causative organism likely Pseudomonas per previous wound culture. Location: Right foot. Likely secondary to diabetic foot ulcer. Improved, but the patient continues to have some mild erythema around the surgical site. Continue antibiotics as above. Qualifiers: Site of cellulitis: extremity Site of cellulitis of extremity: lower extremity Laterality: right Qualified Code(s): L03.115 - Cellulitis of right lower limb (5) JUDD (acute kidney injury) Current Visit: No Status: Acute Etiology unclear, but perhaps secondary to recent lasix use. Improved today. Continue to trend. Dose-adjust antibiotics. Avoid nephrotoxins as able. (6) Diabetic foot ulcer Current Visit: Yes Status: Acute Location: Right heel. Etiology not entirely clear. Continue wound care per podiatry's recommendations. Qualifiers: Diabetic foot ulcer location: heel Diabetes mellitus type: type 2 Laterality: right Non-pressure ulcer stage: unspecified non-pressure ulcer stage Qualified Code(s): E11.621 - Type 2 diabetes mellitus with foot ulcer; L97.419 - Non-pressure chronic ulcer of right heel and midfoot with unspecified severity; L97.419 - Non-pressure chronic ulcer of right heel and midfoot with unspecified severity; L97.419 - Non-pressure chronic ulcer of right heel and midfoot with unspecified severity; L97.419 - Non-pressure chronic ulcer of right heel and midfoot with unspecified severity (7) Hypertensive urgency Current Visit: Yes Status: Acute (8) GERD (gastroesophageal reflux disease) Current Visit: Yes Status: Chronic Qualifiers: Esophagitis presence: esophagitis presence not specified Qualified Code(s) : K21.9 - Gastro-esophageal reflux disease without esophagitis (9) Atrial fibrillation Current Visit: Yes Status: Chronic Qualifiers: Atrial fibrillation type: paroxysmal Qualified Code(s): I48.0 - Paroxysmal atrial fibrillation (10) DM II (diabetes mellitus, type II), controlled Current Visit: Yes Status: Chronic Qualifiers: Diabetes mellitus complication status: with skin complications Diabetes mellitus complication detail: with foot ulcer Diabetes mellitus alf insulin use: without alf use Qualified Code(s): E11.621 - Type 2 diabetes mellitus with foot ulcer; L97.509 - Non-pressure chronic ulcer of other part of unspecified foot with unspecified severity; L97.509 - Non- pressure chronic ulcer of other part of unspecified foot with unspecified severity; L97.509 - Non-pressure chronic ulcer of other part of unspecified foot with unspecified severity; L97.509 - Non-pressure chronic ulcer of other part of unspecified foot with unspecified severity - Subjective Interval history: Patient seen and examined. No acute events noted overnight. Patient resting quietly in bed with eyes closed. States he slept well and feels better today. Denies fevers, chills, or rigors overnight. Denies chest pain, shortness of breath, or cough. Denies nausea, vomiting, or diarrhea. Denies abdominal pain and states his appetite is good. Denies urinary complaints. Denies oral thrush or skin lesions. Reports minimal pain at the surgical site. Infect Dis PN-Objective Data - Labs CBC & Chem 7: 09/08/17 04:00 09/08/17 04:00 Labs: Laboratory Results - last 24 hr 09/07/17 09/07/17 09/07/17 07:25 11:48 16:24 WBC RBC Hgb Hct MCV MCH MCHC RDW Plt Count MPV Immature Gran % Seg Neutrophils % Lymphocytes % Monocytes % Eosinophils % Basophils % Neutrophils # Lymphocytes # Monocytes # Eosinophils # Basophils # Sodium Potassium Chloride Carbon Dioxide BUN Creatinine Est GFR ( Amer) Est GFR (Non-Af Amer) BUN/Creatinine Ratio Glucose POC Glucose 127 H 137 H 193 H Calculated Osmolality Calcium Total Bilirubin AST ALT Alkaline Phosphatase Serum Total Protein Albumin Globulin Albumin/Globulin Ratio 09/07/17 09/08/17 09/08/17 19:58 04:00 04:00 WBC 12.7 H RBC 4.68 Hgb 13.1 Hct 40.0 MCV 85.5 MCH 28.0 MCHC 32.8 RDW 14.1 Plt Count 235 MPV 11.4 Immature Gran % 0.5 Seg Neutrophils % 65.4 Lymphocytes % 22.8 Monocytes % 7.7 Eosinophils % 3.1 Basophils % 0.5 Neutrophils # 8.3 Lymphocytes # 2.9 Monocytes # 1.0 Eosinophils # 0.4 Basophils # 0.1 Sodium 140 Potassium 3.9 Chloride 100 Carbon Dioxide 32 H BUN 33 H Creatinine 1.39 H Est GFR ( Amer) 60 Est GFR (Non-Af Amer) 49 L BUN/Creatinine Ratio 24 Glucose 105 H POC Glucose 79 Calculated Osmolality 298 Calcium 9.4 Total Bilirubin 0.4 AST 26 ALT 25 Alkaline Phosphatase 88 Serum Total Protein 7.6 Albumin 3.3 L Globulin 4.3 H Albumin/Globulin Ratio 0.8 L 09/08/17 09/08/17 07:27 11:09 WBC RBC Hgb Hct MCV MCH MCHC RDW Plt Count MPV Immature Gran % Seg Neutrophils % Lymphocytes % Monocytes % Eosinophils % Basophils % Neutrophils # Lymphocytes # Monocytes # Eosinophils # Basophils # Sodium Potassium Chloride Carbon Dioxide BUN Creatinine Est GFR ( Amer) Est GFR (Non-Af Amer) BUN/Creatinine Ratio Glucose POC Glucose 104 H 204 H Calculated Osmolality Calcium Total Bilirubin AST ALT Alkaline Phosphatase Serum Total Protein Albumin Globulin Albumin/Globulin Ratio Exam - Constitutional Vitals: Temp Pulse Resp BP Pulse Ox 98.6 F 90 16 109/81 96 09/08/17 11:02 09/08/17 11:02 09/08/17 11:02 09/08/17 11:02 09/08/17 12:30 General appearance: average body habitus, cooperative, no acute distress - Head Head exam: Present: atraumatic, normal inspection, normocephalic - Eye Eye exam: Present: EOMI, normal appearance, PERRL Pupils: Present: normal accommodation - ENT ENT exam: Present: mucous membranes moist - Neck Neck exam: Present: normal inspection - Respiratory Respiratory exam: Present: CTAB. Absent: rales, respiratory distress, rhonchi, wheezes - Cardiovascular Cardiovascular exam: Present: RRR, +S1, +S2 - GI/Abdominal GI/Abdominal exam: Present: normal bowel sounds, soft. Absent: distended, tenderness - Extremities Exam Extremities exam: Present: normal inspection, tenderness (right heel). Absent: joint swelling, pedal edema Additional comments: Right heel surgical site with small amount of dark red blood noted on the adaptic dressing, but kerlix C/D/I. Minimal swelling and erythema noted. - Neurological Exam Neurological exam: Present: alert, oriented X3, no focal deficits - Psychiatric Psychiatric exam: Present: normal affect, normal mood - Skin Skin exam: Present: dry, intact, normal color, warm - VTE Documentation of Mechanical Device: Intermittent pneumatic compression device Consult Discharge Plan - Plan Instructions: Levofloxacin (Injection), Diabetic Foot Care (DC), Incision and Drainage (DC) Referrals: Jacob Becerril DPM [Partnered Physician] - 09/10/17 1:15 pm William Donohue DO [Primary Care Provider] - 09/14/17 11:30 am () Celina Guerrero MD [Partnered Physician] - (Janeth Fowler said she would take care of this appointment) Janeth Fowler, [employer]GET[employer] CLASSER [Advanced Practice Nurse] - 09/22/17 9:00 am Prescriptions: Acetaminophen [Tylenol] 650 mg PO Q6HR PRN #30 tablet PRN Reason: Mild Pain (1-3) Ipratropium/Albuterol Neb [Duoneb] 3 ml IH [id number] PRN #30 inhsol PRN Reason: Shortness Of Breath/Wheezing Levofloxacin 750 MG/150 ML [Levaquin Premix 750mg/150 mL] 750 mg IVPB DAILY 20 Days #20 bag
--- NOTE | 2017-09-08 13:18 | Podiatry Progress Note ---
Date of Encounter: 09/08/17 Time of Encounter: 12:00 - Assessment and Plan (1) Skin infection Current Visit: Yes Status: Acute Admitting wbc 12.1 ESR 68 and CRP 6 There was noted decline of WBC after surgical intervention however there was a noted slight bump today to 12.3 Patient also notes increased tenderness to area There is continued erythema and slight edema of heel- will hold off on transfer to ECF and obtain MRI and repeat inflammatory markers prior to dismissal If warranted following workup will consider return to OR for another washout with Sessions Continue to monitor ID on board for antibiotic coverage (2) Abscess Current Visit: Yes Status: Acute Assessment: s/p I&D of right calcaneus Due to slight increase in WBC today and slight erythema with mild fluctuance noted to posterior aspect of heel, will obtain MRI If MRI shows no appearance of abscess, ok for discharge to ECF however if needed will return to OR for 2nd washout Spoke with patient, explained plan, verbalized understanding Continue current antibiotic therapy per ID (3) DM II (diabetes mellitus, type II), controlled Current Visit: Yes Status: Chronic strict glucose control to assist in healing and prevent further complications Qualifiers: Diabetes mellitus complication status: with skin complications Diabetes mellitus complication detail: with foot ulcer Diabetes mellitus tribal judge insulin use: without tribal judge use Qualified Code(s): E11.621 - Type 2 diabetes mellitus with foot ulcer; L97.509 - Non-pressure chronic ulcer of other part of unspecified foot with unspecified severity; L97.509 - Non- pressure chronic ulcer of other part of unspecified foot with unspecified severity; L97.509 - Non-pressure chronic ulcer of other part of unspecified foot with unspecified severity; L97.509 - Non-pressure chronic ulcer of other part of unspecified foot with unspecified severity Subjective Principal diagnosis: Right heel abscess Interval history: Patient is s/p I&D of right heel. Sitting to side of bed eating lunch at this time. States he hopes to leave for LTCF soon. Patient states his heel is a little more painful today than yesterday but tolerable and otherwise no complaints. Patient denies any fevers, chills, n/v or flu like symptoms. Objective - Vital Signs Vital Signs: Vital Signs Temp Pulse Resp BP Pulse Ox 09/08/17 12:30 96 09/08/17 11:02 98.6 F 90 16 109/81 96 09/08/17 07:21 97.7 F 92 15 114/76 97 09/08/17 03:56 98.4 F 97 16 116/70 98 09/08/17 03:27 91 09/08/17 00:35 97.9 F 94 20 110/75 97 09/07/17 23:17 97 09/07/17 19:30 85 09/07/17 19:13 63 16 116/47 100 09/07/17 16:26 97.8 F 77 18 119/76 98 09/07/17 16:12 63 09/07/17 14:00 91 18 124/85 98 Intake and Output 09/07/17 09/08/17 09/08/17 23:59 07:59 15:59 Intake Total 300 / 300 750 / 750 580 / 580 Output Total 250 / 250 260 / 260 75 / 75 Balance 50 / 50 490 / 490 505 / 505 Intake: IV Fluids 100 / 100 100 / 100 Zosyn 3.375 GM In Dextrose 5% ( 100 / 100 100 / 100 Minibag+) 100 ML 100 ML @ 25 mls/hr IVPB Q8HR [facility] Rx#: [id number] Oral 300 / 300 650 / 650 480 / 480 Output: Urine 250 / 250 260 / 260 75 / 75 Other: Meal Dinner Breakfast Percent of Meal Consumed 50% 100% Weight 73.2 kg Blood Glucose* 79 104 204 Patient Weight 09/08/17 23:59 Weight 73.2 kg - Exam Exam: Awake, alert and oriented Pulses palpable DP/PT Cap refill <3 seconds. Incision line of I&D noted to posterior heel of right foot, scabbing is noted, no noted drainage or odor from wound There is edema and erythema surrounding surgical line 3.5cmx3.5cm area of erythema Small area of fluctuance noted to center but no expressible drainage Tenderness with palpation Warmth noted No calf pain with manual compression - Lab Result Diagrams: 09/08/17 04:00 09/08/17 04:00 Labs: Abnormal lab results WBC 12.7 K/mcL (4.3-11.1) H 09/08/17 04:00 ESR 68 mm/hr (0-10) H 09/03/17 12:11 PT 12.7 Seconds (9.4-12.1) H 09/04/17 04:38 Carbon Dioxide 32 mEq/L (19-29) H 09/08/17 04:00 BUN 33 mg/dL (8-26) H 09/08/17 04:00 Creatinine 1.39 mg/dL (0.72-1.25) H 09/08/17 04:00 Est GFR (Non-Af Amer) 49 (> 60) L 09/08/17 04:00 Glucose 105 mg/dL (70-99) H 09/08/17 04:00 POC Glucose 204 (58-89) H 09/08/17 11:09 Hemoglobin A1c 6.2 % (-5.6) H 09/04/17 04:38 C-Reactive Protein 6 mg/L (Less than 5) H 09/03/17 12:11 Albumin 3.3 g/dL (3.5-5.0) L 09/08/17 04:00 Globulin 4.3 g/dL (2.4-3.5) H 09/08/17 04:00 Albumin/Globulin Ratio 0.8 (1.1-2.2) L 09/08/17 04:00 HDL Cholesterol 27 mg/dL (40-59) L 09/04/17 04:38 - VTE Documentation of Mechanical Device: Intermittent pneumatic compression device Consult Discharge Plan - Plan Instructions: Levofloxacin (Injection), Diabetic Foot Care (DC), Incision and Drainage (DC) Referrals: Janeth Fowler CNP [Advanced Practice Nurse] - 09/22/17 9:00 am Jacob Becerril DPM [Partnered Physician] - 09/10/17 1:15 pm William Donohue DO [Primary Care Provider] - 09/14/17 11:30 am () Celina Guerreor MD [Partnered Physician] - (Janeth Fowler said she would take care of this appointment) Prescriptions: Acetaminophen [Tylenol] 650 mg PO Q6HR PRN #30 tablet PRN Reason: Mild Pain (1-3) Ipratropium/Albuterol Neb [Duoneb] 3 ml IH [id number] PRN #30 inhsol PRN Reason: Shortness Of Breath/Wheezing Levofloxacin 750 MG/150 ML [Levaquin Premix 750mg/150 mL] 750 mg IVPB DAILY 20 Days #20 bag
[2017-09-08] MEDS: Isosorbide MONOnitrate (24 HR) 30 MG TAB.ER.24H PO SCH (21:00)
[2017-09-09] MEDS: Piperacillin/Tazobactam 3.375 GM in D5% in Water (Mini-Bag+) 100 ML IVPB SCH ×2 (00:52→08:36)
[2017-09-09] MEDS: Acetaminophen 325 MG TABLET PO PRN (00:56)
[2017-09-09] MEDS: traMADol 50 MG TABLET PO PRN (03:31)
[2017-09-09 03:35] LABS: Basophils # 0.1 K/mcL (0.0-0.2); Basophils % 0.4 %; Eosinophils # 0.5 K/mcL (0.0-0.6); Eosinophils % 3.9 %; Hematocrit 38.3 % (37.5-50.1); Hemoglobin 12.5 g/dL (12.9-16.9); Immature Granulocytes % 0.5 % (0-4); Immature Platelets 8.7 % (1.1-6.1); Lymphocytes # 2.6 K/mcL (0.6-4.6); Lymphocytes % 22.7 %; Mean Corpuscular HGB Conc 32.6 g/dL (31.6-35.5); Mean Corpuscular Volume 85.9 fL (83.0-100.0); Mean Platelet Volume 11.1 fL (9.4-12.4); Monocytes % 8.2 %; Neutrophils # 7.4 K/mcL (1.6-8.9); Platelet Count 221 K/mcL (140-400); Red Blood Count 4.46 M/mcL (4.19-5.50); Red Cell Distribution Width 14.1 % (11.5-14.5); Segmented Neutrophils % 64.3 %
[2017-09-09 03:46] LABS: BUN/Creatinine Ratio 19 (6-26); Blood Urea Nitrogen 24 mg/dL (8-26); Calcium 9.3 mg/dL (8.6-10.8); Carbon Dioxide 29 mEq/L (19-29); Chloride 101 mEq/L (98-109); Glucose 117 mg/dL (70-99); Magnesium 1.8 mg/dL (1.6-2.6); Osmolality,Calculated 293 (280-300); Phosphorous 2.7 mg/dL (2.3-4.7); Potassium 4.6 mEq/L (3.5-4.5); Sodium 139 mEq/L (136-145); eGFR For African Americans > 60 (> 60); eGFR For Non-African Americans 55 (> 60)
[2017-09-09] MEDS: *HR* Heparin 5,000 UNIT/ML VIAL SQ SCH (05:30)
[2017-09-09] MEDS: Insulin LISPRO 300 UNITS/3 ML VIAL SQ SCH ×2 (08:30→11:41)
[2017-09-09] MEDS: Cyanocobalamin (B-12) 1,000 MCG TABLET PO SCH (08:35)
[2017-09-09] MEDS: Metoprolol XL (24 HR) Succ 50 MG TAB.ER.24H PO SCH (08:36)
[2017-09-09] MEDS: Cholecalciferol (D-3) 1,000 UNIT TABLET PO SCH (08:36)
[2017-09-09] MEDS: Aspirin Enteric Coated 81 MG Tablet PO SCH (08:36)
[2017-09-09 11:05] VITALS: BP 175/100
[2017-09-09] MEDS ORDERED: Mag Hydrox/Al Hydrox/Simeth 30 ML UDC PO PRN (11:08)
--- NOTE | 2017-09-09 12:01 | Infectious Disease Progress No ---
Date of Encounter: 09/09/17 Time of Encounter: 11:59 - Assessment and Plan (1) Leukocytosis Current Visit: Yes Status: Acute The patient had a WBC of 12.1 on admission. Likely secondary to right foot wound infection. Continues to have minimally elevated WBC. Continue to trend. Qualifiers: Leukocytosis type: unspecified Qualified Code(s): D72.829 - Elevated white blood cell count, unspecified (2) Abscess Current Visit: Yes Status: Acute Location: Right heel. Causative organism likely PSEA per 08/31/17 wound culture. No imaging was done prior to surgery. ESR 68, CRP 6. Podiatry consulted. Status post I & D 09/04/17. Operative note reviewed. No evidence of bony destruction, but the tendon was involved. Bone biopsy positive for active chronic osteomyelitis. Intra-operative cultures are negative despite gross purulence noted intra-op. The patient had been on oral antibiotics prior to surgery. Repeat MRI showed possible worsening of OM of the calcaneus. Await podiatry recommendations. Continue wound care and activity restrictions per the podiatry team. Discontinue Zosyn. Continue Levaquin 750mg IV daily. Pathology positive for osteomyelitis. Will plan on treating with IV antibiotics for six weeks. Monitor renal function closely and dose-adjust antibiotics. Get weekly CBC, BUN/Cr, ESR, and CRP every Wednesday for the duration of treatment. Weekly EPIV care. Follow up with ID 09/22/17 at 0900. (3) Osteomyelitis Current Visit: Yes Status: Acute Causative organism likely Pseudomonas. Secondary to right heel infection. Status post I & D of the right heel by Dr. Soares 09/04/17. Repeat MRI shows possible worsening of the osteomyelitis. Await podiatry's recommendations. Continue antibiotics as above. Continue wound care per the podiatry team. Qualifiers: Osteomyelitis type: acute hematogenous Osteomyelitis location: foot Laterality: right Qualified Code(s): M86.071 - Acute hematogenous osteomyelitis, right ankle and foot (4) Cellulitis Current Visit: Yes Status: Acute Causative organism likely Pseudomonas per previous wound culture. Location: Right foot. Likely secondary to diabetic foot ulcer. Improved, but the patient continues to have some mild erythema around the surgical site. Continue antibiotics as above. Qualifiers: Site of cellulitis: extremity Site of cellulitis of extremity: lower extremity Laterality: right Qualified Code(s): L03.115 - Cellulitis of right lower limb (5) JUDD (acute kidney injury) Current Visit: No Status: Acute Etiology unclear, but perhaps secondary to recent lasix use. Improved today. Continue to trend. Dose-adjust antibiotics. Avoid nephrotoxins as able. (6) Diabetic foot ulcer Current Visit: Yes Status: Acute Location: Right heel. Etiology not entirely clear. Continue wound care per podiatry's recommendations. Qualifiers: Diabetic foot ulcer location: heel Diabetes mellitus type: type 2 Laterality: right Non-pressure ulcer stage: unspecified non-pressure ulcer stage Qualified Code(s): E11.621 - Type 2 diabetes mellitus with foot ulcer; L97.419 - Non-pressure chronic ulcer of right heel and midfoot with unspecified severity; L97.419 - Non-pressure chronic ulcer of right heel and midfoot with unspecified severity; L97.419 - Non-pressure chronic ulcer of right heel and midfoot with unspecified severity; L97.419 - Non-pressure chronic ulcer of right heel and midfoot with unspecified severity (7) Hypertensive urgency Current Visit: Yes Status: Acute (8) GERD (gastroesophageal reflux disease) Current Visit: Yes Status: Chronic Qualifiers: Esophagitis presence: esophagitis presence not specified Qualified Code(s) : K21.9 - Gastro-esophageal reflux disease without esophagitis (9) Atrial fibrillation Current Visit: Yes Status: Chronic Qualifiers: Atrial fibrillation type: paroxysmal Qualified Code(s): I48.0 - Paroxysmal atrial fibrillation (10) DM II (diabetes mellitus, type II), controlled Current Visit: Yes Status: Chronic Controlled. HgbA1C 6.2%. Recommend aggressive glucose monitoring and control to promote wound healing and prevent re-infection. Qualifiers: Diabetes mellitus complication status: with skin complications Diabetes mellitus complication detail: with foot ulcer Diabetes mellitus roasterman insulin use: without roasterman use Qualified Code(s): E11.621 - Type 2 diabetes mellitus with foot ulcer; L97.509 - Non-pressure chronic ulcer of other part of unspecified foot with unspecified severity; L97.509 - Non- pressure chronic ulcer of other part of unspecified foot with unspecified severity; L97.509 - Non-pressure chronic ulcer of other part of unspecified foot with unspecified severity; L97.509 - Non-pressure chronic ulcer of other part of unspecified foot with unspecified severity - Subjective Interval history: Patient seen and examined. No acute events noted overnight. Patient resting quietly in bed with eyes closed. Denies fevers, chills, or rigors overnight. Denies chest pain, shortness of breath, or cough. Denies nausea, vomiting, or diarrhea. Denies abdominal pain and states his appetite is good. Denies urinary complaints. Denies oral thrush or skin lesions. Reports minimal pain at the surgical site. Infect Dis PN-Objective Data - Labs CBC & Chem 7: 09/09/17 03:30 09/09/17 03:30 Labs: Laboratory Results - last 24 hr 09/08/17 09/08/17 09/08/17 04:00 04:00 18:01 WBC RBC Hgb Hct MCV MCH MCHC RDW Plt Count MPV Immature Gran % Seg Neutrophils % Lymphocytes % Monocytes % Eosinophils % Basophils % Neutrophils # Lymphocytes # Monocytes # Eosinophils # Basophils # Immature Plt Fraction ESR 72 H Sodium 140 Potassium 3.9 Chloride 100 Carbon Dioxide 32 H BUN 33 H Creatinine 1.39 H Est GFR ( Amer) 60 Est GFR (Non-Af Amer) 49 L BUN/Creatinine Ratio 24 Glucose 105 H POC Glucose 139 H Calculated Osmolality 298 Calcium 9.4 Phosphorus Magnesium Total Bilirubin 0.4 AST 26 ALT 25 Alkaline Phosphatase 88 C-Reactive Protein 13 H Serum Total Protein 7.6 Albumin 3.3 L Globulin 4.3 H Albumin/Globulin Ratio 0.8 L 09/08/17 09/09/17 09/09/17 20:49 03:30 03:30 WBC 11.5 H RBC 4.46 Hgb 12.5 L Hct 38.3 MCV 85.9 MCH 28.0 MCHC 32.6 RDW 14.1 Plt Count 221 MPV 11.1 Immature Gran % 0.5 Seg Neutrophils % 64.3 Lymphocytes % 22.7 Monocytes % 8.2 Eosinophils % 3.9 Basophils % 0.4 Neutrophils # 7.4 Lymphocytes # 2.6 Monocytes # 1.0 Eosinophils # 0.5 Basophils # 0.1 Immature Plt Fraction 8.7 H ESR Sodium 139 Potassium 4.6 H Chloride 101 Carbon Dioxide 29 BUN 24 Creatinine 1.26 H Est GFR ( Amer) > 60 Est GFR (Non-Af Amer) 55 L BUN/Creatinine Ratio 19 Glucose 117 H POC Glucose 157 H Calculated Osmolality 293 Calcium 9.3 Phosphorus 2.7 Magnesium 1.8 Total Bilirubin AST ALT Alkaline Phosphatase C-Reactive Protein Serum Total Protein Albumin Globulin Albumin/Globulin Ratio 09/09/17 09/09/17 07:45 11:01 WBC RBC Hgb Hct MCV MCH MCHC RDW Plt Count MPV Immature Gran % Seg Neutrophils % Lymphocytes % Monocytes % Eosinophils % Basophils % Neutrophils # Lymphocytes # Monocytes # Eosinophils # Basophils # Immature Plt Fraction ESR Sodium Potassium Chloride Carbon Dioxide BUN Creatinine Est GFR ( Amer) Est GFR (Non-Af Amer) BUN/Creatinine Ratio Glucose POC Glucose 115 H 213 H Calculated Osmolality Calcium Phosphorus Magnesium Total Bilirubin AST ALT Alkaline Phosphatase C-Reactive Protein Serum Total Protein Albumin Globulin Albumin/Globulin Ratio - Impressions Impressions Foot MRI 09/08/17 13:04 IMPRESSION: 1. Shallow posterior heel soft tissue ulceration with a sinus tract versus incision contacting the posterior aspect of the calcaneus. Significant bone marrow edema and confluent decreased T1 signal in the posterior calcaneus with fluid signal extending into the body. If there has been previous calcaneal surgery this may represent expected postoperative change versus osteomyelitis. In the absence of previous calcaneal excision this most likely represents osteomyelitis. 2. High-grade complex partial tearing of the Achilles tendon insertion which is markedly thickened. No tendon retraction. Small volume of fluid in the retrocalcaneal bursa with infectious bursitis not excluded. 3. Posterior soft tissue edema compatible with cellulitis/myositis. No drainable fluid collection. 4. Mild tibiotalar degenerative changes. D/ / Tian Salguero MD / Tian Salguero MD Interpreting Provider: Tian Salguero MD Exam - Constitutional Vitals: Temp Pulse Resp BP Pulse Ox 98.6 F 86 6 175/100 93 09/09/17 10:59 09/09/17 11:44 09/09/17 10:59 09/09/17 10:59 09/09/17 10:59 General appearance: average body habitus, cooperative, no acute distress - Head Head exam: Present: atraumatic, normal inspection, normocephalic - Eye Eye exam: Present: EOMI, normal appearance, PERRL Pupils: Present: normal accommodation - ENT ENT exam: Present: mucous membranes moist - Neck Neck exam: Present: normal inspection - Respiratory Respiratory exam: Present: CTAB. Absent: rales, respiratory distress, rhonchi, wheezes - Cardiovascular Cardiovascular exam: Present: RRR, +S1, +S2 - GI/Abdominal GI/Abdominal exam: Present: normal bowel sounds, soft. Absent: distended, tenderness - Extremities Exam Extremities exam: Present: tenderness (right heel). Absent: joint swelling, pedal edema Additional comments: Right foot dressing C/D/I. - Neurological Exam Neurological exam: Present: alert, oriented X3, no focal deficits - Psychiatric Psychiatric exam: Present: normal affect, normal mood - Skin Skin exam: Present: dry, intact, normal color, warm - VTE Documentation of Mechanical Device: Intermittent pneumatic compression device Consult Discharge Plan - Plan Instructions: Levofloxacin (Injection), Diabetic Foot Care (DC), Incision and Drainage (DC) Referrals: Janeth Fowler CNP [Advanced Practice Nurse] - 09/22/17 9:00 am Jacob Becerril DPM [Partnered Physician] - 09/10/17 1:15 pm William Donohue DO [Primary Care Provider] - 09/14/17 11:30 am () Celina Guerrero MD [Partnered Physician] - (Janeth Fowler said she would take care of this appointment) Prescriptions: Acetaminophen [Tylenol] 650 mg PO Q6HR PRN #30 tablet PRN Reason: Mild Pain (1-3) Ipratropium/Albuterol Neb [Duoneb] 3 ml IH [id number] PRN #30 inhsol PRN Reason: Shortness Of Breath/Wheezing Levofloxacin 750 MG/150 ML [Levaquin Premix 750mg/150 mL] 750 mg IVPB DAILY 20 Days #20 bag
--- NOTE | 2017-09-09 17:04 | Internal Med Progress Note ---
Date of Encounter: 09/09/17 Time of Encounter: 13:00 - Assessment and plan (1) Diabetic foot ulcer Status: Acute Assessment and plan: Chronic nonhealing right heel ulcer - with osteomyelitis seen on MRI Wound culture from 08/31 grows Pseudomonas, initially on IV Zosyn, discharge with IV Levaquin Preliminary blood, wound cultures negative; bone cultures so far negative Podiatry on board, patient underwent I&D of right heel abscess on 09/04; follow up final intraoperative wound cultures Appreciate ID input - advised IV Levaquin for 6 weeks Return if symptoms worsen, follow up with podiatry and ID Qualifiers: Diabetic foot ulcer location: heel Diabetes mellitus type: type 2 Laterality: right Non-pressure ulcer stage: unspecified non-pressure ulcer stage Qualified Code(s): E11.621 - Type 2 diabetes mellitus with foot ulcer; L97.419 - Non-pressure chronic ulcer of right heel and midfoot with unspecified severity; L97.419 - Non-pressure chronic ulcer of right heel and midfoot with unspecified severity; L97.419 - Non-pressure chronic ulcer of right heel and midfoot with unspecified severity; L97.419 - Non-pressure chronic ulcer of right heel and midfoot with unspecified severity (2) HTN (hypertension) Status: Chronic Assessment and plan: Essential hypertension, controlled, monitor Hypertensive urgency is now improved Continue Rudy Cunningham Qualifiers: Hypertension type: essential hypertension Qualified Code(s): I10 - Essential (primary) hypertension (3) DM II (diabetes mellitus, type II), controlled Status: Chronic Assessment and plan: Type 2 diabetes mellitus, [id number], hyperglycemia Blood sugars noted to be well-controlled. HbA1C 6.2%. Diabetic diet Qualifiers: Diabetes mellitus complication status: with skin complications Diabetes mellitus complication detail: with foot ulcer Diabetes mellitus prison insulin use: without adjunct faculty for medical terminology use Qualified Code(s): E11.621 - Type 2 diabetes mellitus with foot ulcer; L97.509 - Non-pressure chronic ulcer of other part of unspecified foot with unspecified severity; L97.509 - Non- pressure chronic ulcer of other part of unspecified foot with unspecified severity; L97.509 - Non-pressure chronic ulcer of other part of unspecified foot with unspecified severity; L97.509 - Non-pressure chronic ulcer of other part of unspecified foot with unspecified severity (4) CAD (coronary artery disease) Status: Chronic Assessment and plan: Stable - continue ASA, Plavix, statin, beta teofilo Qualifiers: Coronary Disease-Associated Artery/Lesion type: [place] artery [place] vs. transplanted heart: [place] heart Associated angina: without angina Qualified Code(s): I25.10 - Atherosclerotic heart disease of [place] coronary artery without angina pectoris (5) CHF (congestive heart failure) Status: Chronic Assessment and plan: Mild LV diastolic dysfunction, LVEF 50-55% Continue Toprol-XL Qualifiers: Congestive heart failure type: unspecified congestive heart failure type Congestive heart failure chronicity: acute on chronic Qualified Code(s): I50.9 - Heart failure, unspecified (6) COPD (chronic obstructive pulmonary disease) Status: Chronic Assessment and plan: not in acute exacerbation - Continue PRN bronchodilators and supplemental O2 Qualifiers: COPD type: unspecified COPD Qualified Code(s): J44.9 - Chronic obstructive pulmonary disease, unspecified (7) Atrial fibrillation Status: Chronic Assessment and plan: currently rate-controlled. Continue beta teofilo, not on anticoagulation at home Qualifiers: Atrial fibrillation type: paroxysmal Qualified Code(s): I48.0 - Paroxysmal atrial fibrillation - Time Spent With Patient 25 - 35 minutes - Subjective Interval history: Examined this afternoon. Patient is awake and alert. Not in any distress. Denies chest pain. No fever. Hemodynamically stable. Family is at bedside. States he feels better today. States the pain in his right foot has improved. No other acute events or complaints. MRI foot revealed shallow posterior heel soft tissue ulceration with a sinus tract versus incision, significant bone marrow edema likely represents osteomyelitis. Patient is being discharged to [facility] today. He will be on IV antibiotics for 6 weeks. He will be following up with infectious disease as outpatient and also with podiatry as outpatient. - Constitutional Vitals: Temp Pulse Resp BP Pulse Ox 98.6 F 86 6 175/100 93 09/09/17 10:59 09/09/17 11:44 09/09/17 10:59 09/09/17 10:59 09/09/17 10:59 General appearance: Present: cooperative, A&O X 3, pleasant, no acute distress, answers questions appropriately - Head Head exam: Present: atraumatic - Eye Eye exam: Present: EOMI - ENT ENT exam: Present: mucous membranes moist - Respiratory Respiratory exam: Present: CTAB - Cardiovascular Cardiovascular exam: Present: RRR, +S1, +S2 - GI/Abdominal GI/Abdominal exam: Present: soft. Absent: distended, firm, guarding, tenderness - Extremities Exam Extremities exam: Present: radial pulses palpable and symmetrical. Absent: calf tenderness, cyanotic, pedal edema Additional comments: Right foot dressing intact, no bleeding or discharge. - Neurological Exam Neurological exam: Present: alert, oriented X3, no focal deficits. Absent: facial droop, speech deficit Internal Medicine: Result - Labs CBC & Chem 7: 09/09/17 03:30 09/09/17 03:30 Labs: Short CBC 09/09/17 Range/Units 03:30 WBC 11.5 H (4.3-11.1) K/mcL Hgb 12.5 L (12.9-16.9) g/dL Hct 38.3 (37.5-50.1) % Plt Count 221 (140-400) K/mcL Neutrophils # 7.4 (1.6-8.9) K/mcL BMP 09/09/17 03:30 Sodium 139 Potassium 4.6 H Chloride 101 Carbon Dioxide 29 BUN 24 Creatinine 1.26 H Glucose 117 H Calcium 9.3 - ABG Interpretation ABG results: PT/INR, D-dimer PT 12.7 Seconds (9.4-12.1) H 09/04/17 04:38 - Impressions Impressions Foot MRI 09/08/17 13:04 IMPRESSION: 1. Shallow posterior heel soft tissue ulceration with a sinus tract versus incision contacting the posterior aspect of the calcaneus. Significant bone marrow edema and confluent decreased T1 signal in the posterior calcaneus with fluid signal extending into the body. If there has been previous calcaneal surgery this may represent expected postoperative change versus osteomyelitis. In the absence of previous calcaneal excision this most likely represents osteomyelitis. 2. High-grade complex partial tearing of the Achilles tendon insertion which is markedly thickened. No tendon retraction. Small volume of fluid in the retrocalcaneal bursa with infectious bursitis not excluded. 3. Posterior soft tissue edema compatible with cellulitis/myositis. No drainable fluid collection. 4. Mild tibiotalar degenerative changes. D/ / Tian Salguero MD / Tian Salguero MD Interpreting Provider: Tian Salguero MD - VTE Documentation of Mechanical Device: Intermittent pneumatic compression device Consult Discharge Plan - Plan Instructions: Levofloxacin (Injection), Diabetic Foot Care (DC), Incision and Drainage (DC) Referrals: Janeth Fowler CNP [Advanced Practice Nurse] - 09/22/17 9:00 am Jacob Becerril DPM [Partnered Physician] - 09/10/17 1:15 pm William Donohue DO [Primary Care Provider] - 09/14/17 11:30 am () Celina Guerrero MD [Partnered Physician] - (Janeth Fowler said she would take care of this appointment) Prescriptions: Acetaminophen [Tylenol] 650 mg PO Q6HR PRN #30 tablet PRN Reason: Mild Pain (1-3) Ipratropium/Albuterol Neb [Duoneb] 3 ml IH [id number] PRN #30 inhsol PRN Reason: Shortness Of Breath/Wheezing Levofloxacin 750 MG/150 ML [Levaquin Premix 750mg/150 mL] 750 mg IVPB DAILY 20 Days #20 bag
--- NOTE | 2017-09-10 09:30 | Podiatry Progress Note ---
Date of Encounter: 09/09/17 Time of Encounter: : - Assessment and Plan (1) Diabetic foot ulcer Status: Acute Dressing was changed at bedside today. Continued mild erythema, but overall improved. Due to mild erythema we will continue to monitor to determine whether additional washout may be needed. Continue IV antibiotics per infectious disease. Patient will receive daily dressing changes consisting of Betadine soaked gauze and Kerlix. Patient will avoid any pressure on the posterior aspect of his heel. The MRI was reviewed reviewed and the decision was made to try IV antibiotics rather than perform an aggressive calcanectomy which would significantly impair the patient's ability to ambulate. If the antibiotics are unsuccessful more aggressive surgery may be warranted. We will reevaluate the wound on Wednesday to determine whether additional washout will be needed, the patient will follow-up in clinic and schedule a possible tentative surgery for Wednesday. 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 Patient relates that he has been having less pain. Patient denies any other pedal complaints. Objective - Vital Signs Vital Signs: Vital Signs Temp Pulse Resp BP Pulse Ox 09/09/17 11:44 86 09/09/17 10:59 98.6 F 85 6 175/100 93 - Exam Exam: Pedal pulses palpable. Capillary fill time intact to digits 1 through 5 bilaterally. The posterior aspect of the right heel appears to be slightly decreased in erythema and mild drainage is noted out of the open wound site. Sensation intact to light touch to the level of the digits. - Lab Result Diagrams: 09/09/17 03:30 09/09/17 03:30 Labs: Abnormal lab results WBC 11.5 K/mcL (4.3-11.1) H 09/09/17 03:30 Hgb 12.5 g/dL (12.9-16.9) L 09/09/17 03:30 Immature Plt Fraction 8.7 % (1.1-6.1) H 09/09/17 03:30 ESR 72 mm/hr (0-10) H 09/08/17 04:00 PT 12.7 Seconds (9.4-12.1) H 09/04/17 04:38 Potassium 4.6 mEq/L (3.5-4.5) H 09/09/17 03:30 Creatinine 1.26 mg/dL (0.72-1.25) H 09/09/17 03:30 Est GFR (Non-Af Amer) 55 (> 60) L 09/09/17 03:30 Glucose 117 mg/dL (70-99) H 09/09/17 03:30 POC Glucose 213 (58-89) H 09/09/17 11:01 Hemoglobin A1c 6.2 % (-5.6) H 09/04/17 04:38 C-Reactive Protein 13 mg/L (Less than 5) H 09/08/17 04:00 Albumin 3.3 g/dL (3.5-5.0) L 09/08/17 04:00 Globulin 4.3 g/dL (2.4-3.5) H 09/08/17 04:00 Albumin/Globulin Ratio 0.8 (1.1-2.2) L 09/08/17 04:00 HDL Cholesterol 27 mg/dL (40-59) L 09/04/17 04:38 - VTE Documentation of Mechanical Device: Intermittent pneumatic compression device Consult Discharge Plan - Plan Instructions: Levofloxacin (Injection), Diabetic Foot Care (DC), Incision and Drainage (DC) Referrals: Janeth Fowler CNP [Advanced Practice Nurse] - 09/22/17 9:00 am Jacob Becerril DPM [Partnered Physician] - 09/10/17 1:15 pm William Donohue DO [Primary Care Provider] - 09/14/17 11:30 am () Celina Guerrero MD [Partnered Physician] - (Janeth Fowler said she would take care of this appointment) Prescriptions: Acetaminophen [Tylenol] 650 mg PO Q6HR PRN #30 tablet PRN Reason: Mild Pain (1-3) Ipratropium/Albuterol Neb [Duoneb] 3 ml IH [id number] PRN #30 inhsol PRN Reason: Shortness Of Breath/Wheezing Levofloxacin 750 MG/150 ML [Levaquin Premix 750mg/150 mL] 750 mg IVPB DAILY 20 Days #20 bag
== END 2017-09-09 15:28 | DRG 628 ==
LOC: EMEROO 11:09 → 3NENU 11:09 → 2NNU 09-06 09:42
PROVIDERS: ADMIT Internal Medicine; ATTEND Internal Medicine

== ENCOUNTER 2020-06-06 16:25 | Observation (INO) ==
[2020-06-06 17:10] LABS: Basophils # 0.1 K/mcL (0.0-0.2); Basophils % 0.5 %; Eosinophils # 0.4 K/mcL (0.0-0.6); Eosinophils % 3.4 %; Hemoglobin 14.1 g/dL (12.9-16.9); Immature Granulocytes % 0.5 % (0-4); Lymphocytes # 2.2 K/mcL (0.6-4.6); Lymphocytes % 20.9 %; Mean Corpuscular HGB Conc 31.3 g/dL (31.6-35.5); Mean Corpuscular Hemoglobin 28.3 pg (28.0-33.3); Mean Corpuscular Volume 90.2 fL (83.0-100.0); Mean Platelet Volume 12.1 fL (9.4-12.4); Monocytes # 0.8 K/mcL (0.0-1.3); Monocytes % 7.9 %; Platelet Count 170 K/mcL (140-400); Red Blood Count 4.99 M/mcL (4.19-5.50); Red Cell Distribution Width 12.7 % (11.5-14.5); Segmented Neutrophils % 66.8 %; White Blood Count 10.5 K/mcL (4.3-11.1)
[2020-06-06 17:19] LABS: INR 0.9; Prothrombin Time 10.3 Seconds (9.4-12.1)
[2020-06-06 17:21] LABS: Activated Partial Thrombo Time 27.1 Seconds (26.0-36.0)
[2020-06-06 17:33] LABS: Alanine Aminotransferase 16 Units/L (7-52); Albumin/Globulin Ratio 1.5 (1.1-2.2); Alkaline Phosphatase 74 Units/L (34-104); Aspartate Amino Transferase 16 Units/L (13-39); BUN/Creatinine Ratio 22 (6-26); Bilirubin,Direct 0.1 mg/dL (0.0-0.2); Bilirubin,Indirect 0.4 mg/dL (0.0-1.0); Bilirubin,Total 0.5 mg/dL (0.3-1.0); Blood Urea Nitrogen 24 mg/dL (8-23); Calcium 9.5 mg/dL (8.6-10.3); Carbon Dioxide 30 mEq/L (23-29); Chloride 101 mEq/L (98-107); Globulin 2.7 g/dL (2.4-3.5); Glucose 124 mg/dL (70-105); Lipase 43 Units/L (11-82); Osmolality,Calculated 291 (280-300); Potassium 4.5 mEq/L (3.5-5.1); Sodium 138 mEq/L (136-145); Total Protein 6.7 g/dL (6.4-8.9); Troponin I 0.03 ng/mL (< 0.04); eGFR For African Americans > 60 (> 60); eGFR For Non-African Americans > 60 (> 60)
[2020-06-06] MEDS ORDERED: Ondansetron 4 MG/2 ML VIAL IVP PRN (18:23)
[2020-06-06] MEDS ORDERED: Naloxone 0.4 MG/ML INJ IVP PRN (18:23)
[2020-06-06] MEDS ORDERED: *HR* Heparin 5,000 UNIT/ML VIAL IVP PRN ×2 (18:25)
[2020-06-06] MEDS ORDERED: D5% in Water 1,000 ML IVC PRN (18:27)
[2020-06-06] MEDS ORDERED: *HR* Dextrose 50 % in Water (Vial) 50 ML VIAL IVP PRN (18:27)
[2020-06-06] MEDS ORDERED: Dextrose Gel 15 GM/37.5 ML TUBE PO PRN ×2 (18:27)
[2020-06-06] MEDS ORDERED: Heparin 25,000 UNIT/250 ML D5W 25,000 UNIT/250 ML IV.SOLN IVC SCH (18:30)
[2020-06-06] MEDS ORDERED: Ipratropium/Albuterol Neb 3 ML IH PRN (18:32)
[2020-06-06] MEDS: Isosorbide MONOnitrate (24 HR) 30 MG TAB.ER.24H PO SCH (19:35)
[2020-06-06 19:53] LABS: Prothrombin Time 11.1 Seconds (9.4-12.1)
[2020-06-06 19:56] LABS: Heparin anti-factor XA UFH < 0.04 IU/mL (0.30-0.70)
[2020-06-06 22:54] LABS: Bilirubin,Urine Negative (Negative); Blood,Urine Negative (Negative); Clarity,Urine Clear (Clear); Color,Urine Yellow (Yellow); Glucose,Urine (UA) Normal (Normal); Ketones,Urine Negative (Negative); Leukocyte Esterase,Urine Negative (Negative); Nitrite,Urine Negative (Negative); Protein,Urine 30 mg/dL (Neg-Trace); RBC,Urine 0-3 per hpf (0-3); Specific Gravity,Urine 1.026 (1.010-1.025); WBC,Urine 0-3 per hpf (0-3)
[2020-06-07 02:05] LABS: Basophils # 0.1 K/mcL (0.0-0.2); Basophils % 0.5 %; Eosinophils # 0.5 K/mcL (0.0-0.6); Eosinophils % 5.1 %; Hematocrit 42.2 % (37.5-50.1); Hemoglobin 13.7 g/dL (12.9-16.9); Immature Granulocytes % 0.4 % (0-4); Lymphocytes # 2.6 K/mcL (0.6-4.6); Lymphocytes % 27.8 %; Mean Corpuscular HGB Conc 32.5 g/dL (31.6-35.5); Mean Corpuscular Hemoglobin 29.8 pg (28.0-33.3); Mean Corpuscular Volume 91.7 fL (83.0-100.0); Mean Platelet Volume 12.3 fL (9.4-12.4); Monocytes # 0.7 K/mcL (0.0-1.3); Monocytes % 7.9 %; Neutrophils # 5.5 K/mcL (1.6-8.9); Platelet Count 148 K/mcL (140-400); Red Cell Distribution Width 12.7 % (11.5-14.5); Segmented Neutrophils % 58.3 %; White Blood Count 9.4 K/mcL (4.3-11.1)
[2020-06-07 02:23] LABS: BUN/Creatinine Ratio 21 (6-26); Blood Urea Nitrogen 22 mg/dL (8-23); Carbon Dioxide 30 mEq/L (23-29); Chloride 102 mEq/L (98-107); Glucose 187 mg/dL (70-105); Osmolality,Calculated 298 (280-300); Potassium 3.9 mEq/L (3.5-5.1); Sodium 140 mEq/L (136-145); eGFR For African Americans > 60 (> 60); eGFR For Non-African Americans > 60 (> 60)
[2020-06-07] MEDS: Insulin LISPRO 300 UNITS/3 ML VIAL SQ SCH ×3 (07:18→16:28)
[2020-06-07] MEDS: Aspirin Enteric Coated 81 MG Tablet PO SCH (08:45)
[2020-06-07] MEDS ORDERED: Metoprolol XL (24 HR) Succ 50 MG TAB.ER.24H PO SCH (09:00)
[2020-06-07] MEDS ORDERED: Perflutren Lipid Microsphere 1.3 ML in 0.9 % Sodium Chloride 8.7 ML IVP PRN (09:42)
[2020-06-07] MEDS ORDERED: Regadenoson 0.4 MG/5 ML SYRINGE IVP ONE (10:02)
[2020-06-07] MEDS ORDERED: Albuterol 2.5 MG/3 ML NEBULIZER IH PRN (10:30)
[2020-06-07] MEDS: Albuterol 2.5 MG/3 ML NEBULIZER IH SCH ×4 (11:23→23:40)
[2020-06-07] MEDS ORDERED: 0.9 % Sodium Chloride 1,000 ML ONE ×2 (14:08→14:13)
[2020-06-07] MEDS ORDERED: *HR* Heparin 10,000 UNIT/10 ML VIAL ONE (14:08)
[2020-06-07] MEDS ORDERED: Heparin 1,000 UNITS/500 mL 500 ML ONE (14:08)
[2020-06-07] MEDS ORDERED: ISOVUE-370 200 ML INFUS..BTL ONE (14:08)
[2020-06-07] MEDS ORDERED: Nitroglycerin 1,000 MCG/10 ML VIAL IV ONE (14:08)
[2020-06-07] MEDS ORDERED: *HR* FentaNYL (PF) 100 MCG/2 ML VIAL ONE (14:34)
[2020-06-07] MEDS ORDERED: *HR* Midazolam HCl 2 MG/2 ML VIAL ONE (14:34)
[2020-06-07] MEDS: Budesonide/Formoterol 160/4.5 1 PUFF INH IH SCH (19:49)
[2020-06-07] MEDS: Isosorbide MONOnitrate (24 HR) 30 MG TAB.ER.24H PO SCH (20:13)
[2020-06-08] MEDS: Albuterol 2.5 MG/3 ML NEBULIZER IH SCH ×3 (03:35→11:59)
[2020-06-08 06:52] LABS: VBG HCO3 30 mEq/L (21-27); VBG PCO2 53 mmHg (41-51); VBG PH 7.37 pH Units (7.32-7.42); VBG PO2 201 mmHg (25-50)
[2020-06-08 07:06] LABS: BUN/Creatinine Ratio 19 (6-26); Blood Urea Nitrogen 19 mg/dL (8-23); Calcium 8.8 mg/dL (8.6-10.3); Carbon Dioxide 28 mEq/L (23-29); Chloride 105 mEq/L (98-107); Glucose 124 mg/dL (70-105); Osmolality,Calculated 292 (280-300); Potassium 4.2 mEq/L (3.5-5.1); Sodium 139 mEq/L (136-145); eGFR For African Americans > 60 (> 60); eGFR For Non-African Americans > 60 (> 60)
[2020-06-08 07:40] LABS: Hematocrit 46.5 % (37.5-50.1); Hemoglobin 14.1 g/dL (12.9-16.9); Mean Corpuscular HGB Conc 30.3 g/dL (31.6-35.5); Mean Corpuscular Hemoglobin 28.8 pg (28.0-33.3); Mean Corpuscular Volume 95.1 fL (83.0-100.0); Mean Platelet Volume 12.3 fL (9.4-12.4); Platelet Count 131 K/mcL (140-400); Red Blood Count 4.89 M/mcL (4.19-5.50); Red Cell Distribution Width 12.7 % (11.5-14.5); White Blood Count 9.3 K/mcL (4.3-11.1)
[2020-06-08 07:42] VITALS: BP 145/73
[2020-06-08] MEDS: Aspirin Enteric Coated 81 MG Tablet PO SCH (07:58)
[2020-06-08] MEDS: Insulin LISPRO 300 UNITS/3 ML VIAL SQ SCH (07:58)
[2020-06-08] MEDS: Budesonide/Formoterol 160/4.5 1 PUFF INH IH SCH (08:17)
[2020-06-08] MEDS ORDERED: lisinopriL 20 MG TABLET PO SCH (09:00)
[2020-06-08] MEDS ORDERED: Furosemide 20 MG TABLET PO SCH (09:00)
[2020-06-08] MEDS ORDERED: Metoprolol XL (24 HR) Succ 50 MG TAB.ER.24H PO SCH (09:00)
== END 2020-06-08 12:53 | disposition home or self-care (01) ==
LOC: 2ANU 16:25 → EMEROOARM 16:25 → 2ANU 18:52
PROVIDERS: ADMIT Internal Medicine; ATTEND Internal Medicine